=== PATIENT | female | born 1945 | race Caucasian/White ===

== ENCOUNTER 2019-02-01 07:50 | Day surgery (SDC) | payer OTHER ==
[2019-02-01] MEDS ORDERED: Ringers Lactate 1,000 ML IV ONE (08:09)
[2019-02-01] MEDS ORDERED: PROPOFOL 200 MG/20 ML VIAL IV ONE (08:38)
[2019-02-01] MEDS ORDERED: LIDOCAINE 1% MPF 5 ML VIAL ONE (08:38)
--- NOTE | 2019-02-01 08:56 | ENDO RPT ---
[address], [address] COLONOSCOPY PROCEDURE REPORT EXAM DATE: 02/01/2019 PATIENT NAME: Joanie Infante MR #: [id number] BIRTHDATE: 1945 ATTENDING: Buck Laws DR STATUS: outpatient ELECTROLYTIC DE SCALER: Chidi Whittaker and Sharona Rice RN INDICATIONS: The patient is a 73 yr old Female here for a colonoscopy due to colon cancer screening and S/P perforated diverticulitis with emergent colostomy PROCEDURE PERFORMED: Colonoscopy with biopsy - cold polypectomy MEDICATIONS: Per Anesthesia. ESTIMATED BLOOD LOSS: None CONSENT: The patient understands the risks and benefits of the procedure and understands that these risks include, but are not limited to: sedation, allergic reaction, infection, perforation and/or bleeding. Alternative means of evaluation and treatment include, among others: physical exam, x-rays, and/or surgical intervention. The patient elects to proceed with this endoscopic procedure. DESCRIPTION OF PROCEDURE: During intra-op preparation period all mechanical medical equipment was checked for proper function. Hand hygiene and appropriate measures for infection prevention was taken. Procedure, possible complications, alternatives including, but not limited to possibility of bleeding, perforation, tear, infection, sepsis, need for surgery, need for blood transfusion, were explained to the patient. After the risks, benefits and alternatives of the procedure were thoroughly explained, Informed consent was verified, confirmed and timeout was successfully executed by the treatment team. The patient was placed in the left lateral position. A digital rectal exam was performed and revealed no abnormalities of the rectum. After appropriate level of anesthesia, the scope was passed. The EC-[id number] ([id number]) endoscope was introduced through the anus and advanced to the ileum. The quality of the prep was fair. The instrument was then slowly withdrawn as the colon was fully examined. Scope withdrawal time was 10 minutes. COLON FINDINGS: Mild diverticulosis was noted in the sigmoid colon. No bleeding was noted from the diverticulosis. Three small smooth and polypoid shaped semi-pedunculated polyps with mucous caps were found in the rectum, sigmoid colon, and distal transverse colon. A polypectomy was performed with cold forceps. The resection was complete, the polyp tissue was completely retrieved and sent to histology. Retroflexed views revealed no abnormalities. The scope was then completely withdrawn from the patient and the procedure terminated. ADVERSE EVENTS: There were no complications. IMPRESSIONS: 1. Mild diverticulosis was noted in the sigmoid colon 2. Three small semi-pedunculated polyps were found in the rectum, sigmoid colon, and distal transverse colon; polypectomy was performed with cold forceps RECOMMENDATIONS: 1. avoid NSAIDS for 2 weeks 2. await biopsy results 3. fiber rich diet 4. follow-up: office 2 week(s) 5. Monitor for any evidence of rectal bleeding. 6. increase dietary water RECALL: Return in 2 year(s) for Colonoscopy, pending biopsy results. Pending Biopsy Buck Lwas DR eSigned: Buck Laws DR 02/01/2019 8:55 AM cc: CPT CODES: ICD9 CODES: PATIENT NAME: Joanie Infante MR#: [id number]
[2019-02-01 09:55] VITALS: BP 118/57; TEMP 97.6; O2SAT 96
== END 2019-02-01 09:50 | disposition home or self-care (01) ==
LOC: OR 07:50
PROVIDERS: ATTEND Surgery
PROC: 0DBL8ZX Excision of Transverse Colon, Via Natural or Artificial Opening Endoscopic, Diagnostic (ICD-10-PCS; 2019-02-01)
PROC: 0DBN8ZX Excision of Sigmoid Colon, Via Natural or Artificial Opening Endoscopic, Diagnostic (ICD-10-PCS; 2019-02-01)
PROC: 0DBP8ZX Excision of Rectum, Via Natural or Artificial Opening Endoscopic, Diagnostic (ICD-10-PCS; principal; 2019-02-01 09:30)
DX: Z12.11 Encounter for screening for malignant neoplasm of colon (principal); D12.3 Benign neoplasm of transverse colon; D12.5 Benign neoplasm of sigmoid colon; D12.8 Benign neoplasm of rectum; K57.30 Diverticulosis of large intestine without perforation or abscess without bleeding; Z98.0 Intestinal bypass and anastomosis status; I12.9 Hypertensive chronic kidney disease with stage 1 through stage 4 chronic kidney disease, or unspecified chronic kidney disease; N18.9 Chronic kidney disease, unspecified; E03.9 Hypothyroidism, unspecified; Z79.899 Other long term (current) drug therapy
CPT/HCPCS: 45380; 88305; J2704

== ENCOUNTER 2023-01-02 13:27 | Inpatient (IN) | payer OTHER ==
--- OUTSIDE RECORDS SUMMARY | 2023-01-02 13:31 | XMS REPORT | Continuity of Care Document ---
:1945 Author Organization [facility] t Address [address] [place] [address] [address] [place] [address] Care Team Providers Name Role Phone Lisa Eduardo Attending Clinician Unavailable Luciana Costa Attending Clinician Unavailable Juan Francisco James Attending Clinician Unavailable Jeanine Quintana Attending Clinician Unavailable Payers Payer Name Policy Type Policy Number Effective Date Expiration Date S ource Formerly [facility] C1 [id number] Common Sp raudel ing Medicare - [facility] Replace [facility] [employer] C1 [id number] Common Sp raudel ing Medicare - [facility] Replace [facility] [employer] C1 [id number] Common Sp raudel ing Medicare - [facility] Replace [facility] Problems Condition Condition Condition Status Onset Resolution Last Treating Co mments Source Name Details Category Date Date Treatment Clinician Date [id number] BMI Problem Common [facility] Essential Essential Problem Com mon hypertensi hypertensi Sp raudel on on [facility] Serum TSH Abnormal Problem Comm [facility] abnormal [facility] [id number] Abnormal Problem Comm on chest Spirit x-ray [facility] [id number] 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 - [facility] unspecifie Medica l d kyphosis Center type [id number] Environmen Problem Co mmon [place] [facility] allergies [facility] [id number] Hyperglyce Problem Com mon param [facility] [id number] 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, - [facility] unspecifie St d hearing [facility] loss type [facility] [id number] Acquired Problem Comm on hypothyroi Spirit dism [facility] [id number] [place] [id number] (BMI Spirit 30.0-34.9) [facility] 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 Spir it sterolemia [facility] Allergies, Adverse Reactions, Alerts Allergy Allergy Status Severity Reaction(s) Onset Inactive Treating Comm ents Source Name Type Date Date Clinician aspirin aspirin Active Unknown Common [facility] Benzodia Benzodia Active Unknown Commo n zepines zepines [facility] Social History Social Habit Start Date Stop Date Quantity Comments Source History of Tobacco Use Co mmon [facility] Sex Assigned At Com mon [facility] Smoking Status Start Date Stop Date Source Former Smoker 2022-09-16 00:00:00 2022-09-16 00:00:[facility] Medications Ordered Filled Start Stop Current Ordering Indication Dosage Frequency Signature Comments Components Source Medication Medication Date Date Medication? Clinician (SIG) Name Name Levothyroxi Levothyroxi No QD ne Sodium ne Sodium 8-02 50 MCG 50 MCG 00:00: 00 Levothyroxi Levothyroxi No QD Levothyrox ne Sodium ne Sodium 8-02 ine Sodium 50 MCG 50 MCG 00:00: 50 MCG 00 amLODIPine amLODIPine No 1{table amLODIPine Besylate Besylate 04-23 t} Besylate 2.5 MG 2.5 MG 00:00: 2.5 MG 00 amLODIPine amLODIPine No 1{table Besylate Besylate 04-23 t} 2.5 MG 2.5 MG 00:00: 00 Levothyroxi Levothyroxi No QD Levothyrox ne Sodium ne Sodium ine Sodium 25 MCG 25 MCG 25 MCG Lisinopril- Lisinopril- No 1{table QD Lisinopril hydroCHLORO hydroCHLORO t} -hydroCHLO thiazide thiazide ROthiazide 10-12.5 MG 10-12.5 MG 10-12.5 MG Levothyroxi Levothyroxi No QD Levothyrox ne Sodium ne Sodium ine Sodium 25 MCG 25 MCG 25 MCG amLODIPine amLODIPine No 1{table amLODIPine Besylate Besylate t} Besylate 2.5 MG 2.5 MG 2.5 MG Levothyroxi Levothyroxi No QD Levothyrox ne Sodium ne Sodium ine Sodium 25 MCG 25 MCG 25 MCG Calcium + D Calcium + D No 1{table QD Calcium + t} D Lisinopril- Lisinopril- No 1{table QD Lisinopril hydroCHLORO hydroCHLORO t} -hydroCHLO thiazide thiazide ROthiazide 10-12.5 MG 10-12.5 MG 10-12.5 MG Calcium + D Calcium + D No 1{table QD Calcium + t} D Levothyroxi Levothyroxi No QD Levothyrox ne Sodium ne Sodium ine Sodium 25 MCG 25 MCG 25 MCG amLODIPine amLODIPine No 1{table amLODIPine Besylate Besylate t} Besylate 2.5 MG 2.5 MG 2.5 MG Levothyroxi Levothyroxi No QD Levothyrox ne Sodium ne Sodium ine Sodium 25 MCG 25 MCG 25 MCG Lisinopril- Lisinopril- No 1{table QD Lisinopril hydroCHLORO hydroCHLORO t} -hydroCHLO thiazide thiazide ROthiazide 10-12.5 MG 10-12.5 MG 10-12.5 MG Levothyroxi Levothyroxi No Levothyrox ne Sodium ne Sodium ine Sodium 50 MCG 50 MCG 50 MCG Lisinopril- Lisinopril- No Lisinopril hydroCHLORO hydroCHLORO -hydroCHLO thiazide thiazide ROthiazide 10-12.5 MG 10-12.5 MG 10-12.5 MG amLODIPine amLODIPine No 1{table amLODIPine Besylate Besylate t} Besylate 2.5 MG 2.5 MG 2.5 MG Calcium + D Calcium + D No 1{table QD Calcium + t} D Levothyroxi Levothyroxi No QD Levothyrox ne Sodium ne Sodium ine Sodium 25 MCG 25 MCG 25 MCG Lisinopril- Lisinopril- No 1{table QD Lisinopril hydroCHLORO hydroCHLORO t} -hydroCHLO thiazide thiazide ROthiazide 10-12.5 MG 10-12.5 MG 10-12.5 MG Lisinopril- Lisinopril- No Lisinopril hydroCHLORO hydroCHLORO -hydroCHLO thiazide thiazide ROthiazide 10-12.5 MG 10-12.5 MG 10-12.5 MG Immune Immune No Immune Support - Support - Support - Levothyroxi Levothyroxi No Levothyrox ne Sodium ne Sodium ine Sodium 25 MCG 25 MCG 25 MCG Levothyroxi Levothyroxi No QD Levothyrox ne Sodium ne Sodium ine Sodium 25 MCG 25 MCG 25 MCG Claritin 10 Claritin 10 No 1{table QD Claritin MG MG t} 10 MG amLODIPine amLODIPine No 1{table amLODIPine Besylate Besylate t} Besylate 2.5 MG 2.5 MG 2.5 MG Calcium + D Calcium + D No 1{table QD Calcium + t} D Lisinopril- Lisinopril- No 1{table QD Lisinopril hydroCHLORO hydroCHLORO t} -hydroCHLO thiazide thiazide ROthiazide 10-12.5 MG 10-12.5 MG 10-12.5 MG Lisinopril- Lisinopril- No Lisinopril hydroCHLORO hydroCHLORO -hydroCHLO thiazide thiazide ROthiazide 10-12.5 MG 10-12.5 MG 10-12.5 MG Immune Immune No Immune Support - Support - Support - Levothyroxi Levothyroxi No Levothyrox ne Sodium ne Sodium ine Sodium 25 MCG 25 MCG 25 MCG Levothyroxi Levothyroxi No QD Levothyrox ne Sodium ne Sodium ine Sodium 25 MCG 25 MCG 25 MCG Claritin 10 Claritin 10 No 1{table QD Claritin MG MG t} 10 MG amLODIPine amLODIPine No 1{table amLODIPine Besylate Besylate t} Besylate 2.5 MG 2.5 MG 2.5 MG Calcium + D Calcium + D No 1{table QD Calcium + t} D Lisinopril- Lisinopril- No 1{table QD Lisinopril hydroCHLORO hydroCHLORO t} -hydroCHLO thiazide thiazide ROthiazide 10-12.5 MG 10-12.5 MG 10-12.5 MG Lisinopril- Lisinopril- No Lisinopril hydroCHLORO hydroCHLORO -hydroCHLO thiazide thiazide ROthiazide 10-12.5 MG 10-12.5 MG 10-12.5 MG Immune Immune No Immune Support - Support - Support - Levothyroxi Levothyroxi No Levothyrox ne Sodium ne Sodium ine Sodium 25 MCG 25 MCG 25 MCG Levothyroxi Levothyroxi No QD Levothyrox ne Sodium ne Sodium ine Sodium 25 MCG 25 MCG 25 MCG Claritin 10 Claritin 10 No 1{table QD Claritin MG MG t} 10 MG amLODIPine amLODIPine No 1{table amLODIPine Besylate Besylate t} Besylate 2.5 MG 2.5 MG 2.5 MG Calcium + D Calcium + D No 1{table QD Calcium + t} D Calcium + D Calcium + D No 1{table QD Calcium + t} D Lisinopril- Lisinopril- No Lisinopril hydroCHLORO hydroCHLORO -hydroCHLO thiazide thiazide ROthiazide 10-12.5 MG 10-12.5 MG 10-12.5 MG amLODIPine amLODIPine No 1{table amLODIPine Besylate Besylate t} Besylate 2.5 MG 2.5 MG 2.5 MG Levothyroxi Levothyroxi No Levothyrox ne Sodium ne Sodium ine Sodium 25 MCG 25 MCG 25 MCG Immune Immune No Immune Support - Support - Support - Claritin 10 Claritin 10 No 1{table QD Claritin MG MG t} 10 MG Lisinopril- Lisinopril- No 1{table QD Lisinopril hydroCHLORO hydroCHLORO t} -hydroCHLO thiazide thiazide ROthiazide 10-12.5 MG 10-12.5 MG 10-12.5 MG Calcium Calcium No Calcium tylenol tylenol No tylenol Calcium + D Calcium + D No 1{table QD Calcium + t} D Levothyroxi Levothyroxi No QD Levothyrox ne Sodium ne Sodium ine Sodium 75 MCG 75 MCG 75 MCG Flonase 50 Flonase 50 No QD Flonase 50 MCG/ACT MCG/ACT MCG/ACT Calcium + D Calcium + D No 1{table QD t} Calcium Calcium No Flonase 50 Flonase 50 No QD MCG/ACT MCG/ACT Lisinopril- Lisinopril- No 1{table QD hydroCHLORO hydroCHLORO t} thiazide thiazide 10-12.5 MG 10-12.5 MG tylenol tylenol No Levothyroxi Levothyroxi No QD Levothyrox ne Sodium ne Sodium ine Sodium 75 MCG 75 MCG 75 MCG Lisinopril- Lisinopril- No 1{table QD Lisinopril hydroCHLORO hydroCHLORO t} -hydroCHLO thiazide thiazide ROthiazide 10-12.5 MG 10-12.5 MG 10-12.5 MG amLODIPine amLODIPine No 1{table amLODIPine Besylate Besylate t} Besylate 2.5 MG 2.5 MG 2.5 MG Calcium + D Calcium + D No 1{table QD Calcium + t} D Calcium + D Calcium + D No 1{table QD Calcium + t} D Lisinopril- Lisinopril- Yes Jeanine 1 tablet Common Hydrochloro Hydrochloro [facility] thiazide thiazide - [facility] Levothyroxi Levothyroxi Yes Jeanine 1 tablet Common ne Sodium ne Sodium [facility] in the Spirit morning on - [facility] empty [facility] amLODIPine amLODIPine No 1{table amLODIPine Besylate Besylate t} Besylate 2.5 MG 2.5 MG 2.5 MG Immunizations Ordered Immunization Filled Immunization Date Status Commen ts Source Name Name FLUZONE HIGH DOSE FLUZONE HIGH DOSE 2022-08-11 Completed [facility] OVER 65 OVER 65 14:58:00 - [facility] FLUZONE HIGH DOSE FLUZONE HIGH DOSE 2022-08-11 Completed [facility] OVER 65 OVER 65 14:58:00 - [facility] FLUZONE HIGH DOSE FLUZONE HIGH DOSE 2022-08-11 Completed [facility] OVER 65 OVER 65 14:58:00 - [facility] FLUZONE HIGH DOSE FLUZONE HIGH DOSE 2022-08-11 Completed [facility] OVER 65 OVER 65 14:58:00 - [facility] FluAD FluAD 2021-08-23 Completed [facility] 09:07:00 [facility] FluAD FluAD 2021-08-23 Completed [facility] 09:07:00 - [facility] FluAD FluAD 2021-08-23 Completed [facility] 09:07:00 - [facility] FluAD FluAD 2021-08-23 Completed [facility] 09:07:00 - [facility] FluAD FluAD 2021-08-23 Completed [facility] 09:07:00 - [facility] FluAD FluAD 2021-08-23 Completed [facility] 09:07:00 [facility] FluAD FluAD 2021-08-23 Completed [facility] 09:07:00 - [facility] FluAD FluAD 2021-08-23 Completed [facility] 09:07:00 - [facility] FLUZONE HIGH DOSE FLUZONE HIGH DOSE 2020-07-09 Completed [facility] OVER 65 OVER 65 15:44:00 - [facility] FLUZONE HIGH DOSE FLUZONE HIGH DOSE 2020-07-09 Completed [facility] OVER 65 OVER 65 15:44:00 - [facility] FLUZONE HIGH DOSE FLUZONE HIGH DOSE 2020-07-09 Completed [facility] OVER 65 OVER 65 15:44:00 - [facility] FLUZONE HIGH DOSE FLUZONE HIGH DOSE 2020-07-09 Completed [facility] OVER 65 OVER 65 15:44:00 - [facility] FLUZONE HIGH DOSE FLUZONE HIGH DOSE 2020-07-09 Completed [facility] OVER 65 OVER 65 15:44:00 - [facility] FLUZONE HIGH DOSE FLUZONE HIGH DOSE 2020-07-09 Completed [facility] OVER 65 OVER 65 15:44:00 - [facility] FLUZONE HIGH DOSE FLUZONE HIGH DOSE 2020-07-09 Completed [facility] OVER 65 OVER 65 15:44:00 - [facility] FLUZONE HIGH DOSE FLUZONE HIGH DOSE 2020-07-09 Completed [facility] OVER 65 OVER 65 15:44:00 - [facility] FLUZONE HIGH DOSE FLUZONE HIGH DOSE 2020-07-09 Completed [facility] OVER 65 OVER 65 15:44:00 - [facility] FLUZONE HIGH DOSE FLUZONE HIGH DOSE 2020-07-09 Completed [facility] OVER 65 OVER 65 15:44:00 - [facility] FLUZONE HIGH DOSE FLUZONE HIGH DOSE 2020-07-09 Completed [facility] OVER 65 OVER 65 15:44:00 - [facility] Fluzone Fluzone 2018-07-25 Completed [facility] 10:29:00 - [facility] Fluzone Fluzone 2018-07-25 Completed [facility] 10:29:00 - [facility] Fluzone Fluzone 2018-07-25 Completed [facility] 10:29:00 - [facility] Fluzone Fluzone 2018-07-25 Completed [facility] 10:29:00 - [facility] Fluzone Fluzone 2018-07-25 Completed [facility] 10:29:00 - [facility] Fluzone Fluzone 2018-07-25 Completed [facility] 10:29:00 - [facility] Fluzone Fluzone 2018-07-25 Completed [facility] 10:29:00 - [facility] Fluzone Fluzone 2018-07-25 Completed [facility] 10:29:00 - [facility] Fluzone Fluzone 2018-07-25 Completed [facility] 10:29:00 - [facility] Fluzone Fluzone 2018-07-25 Completed [facility] 10:29:00 - [facility] Fluzone Fluzone 2018-07-25 Completed [facility] 10::00 - [facility] Vital Signs Vital Name Observation Time Observation Value Comments Source height 2022-09-16 09:00:00 60.50 [in_i] [facility] weight 2022-09-16 09:00:00 163.8 [lb_av] [facility] temperature 2022-09-16 09:00:00 97.6 [degF] [facility] bmi 2022-09-16 09:00:00 31.46 kg/m2 [facility] oximetry 2022-09-16 09:00:00 96 % [facility] respiratory rate 2022-09-16 09:00:00 18 /min Comm on [facility] blood pressure 2022-09-16 09:00:00 136 mm[Hg] Common [facility] systolic [facility] blood pressure 2022-09-16 09:00:00 72 mm[Hg] [facility] diastolic [facility] height 2022-08-11 13:40:00 60.50 [in_i] [facility] weight 2022-08-11 13:40:00 165 [lb_av] [facility] temperature 2022-08-11 13:40:00 97.2 [degF] Common S pirit [facility] bmi 2022-08-11 13:40:00 31.69 kg/m2 [facility] oximetry 2022-08-11 13:40:00 93 % Common [facility] respiratory rate 2022-08-11 13:40:00 20 /min Comm on [facility] blood pressure 2022-08-11 13:40:00 142 mm[Hg] [facility] systolic [facility] blood pressure 2022-08-11 13:40:00 96 mm[Hg] [facility] - diastolic [facility] height 2022-08-11 13:00:00 60.50 [in_i] Common [facility] weight 2022-08-11 13:00:00 165 [lb_av] Common [facility] temperature 2022-08-11 13:00:00 97.2 [degF] Common S [facility] bmi 2022-08-11 13:00:00 31.69 kg/m2 [facility] oximetry 2022-08-11 13:00:00 93 % [facility] respiratory rate 2022-08-11 13:00:00 20 /min Comm on [facility] blood pressure 2022-08-11 13:00:00 176 mm[Hg] [facility] - systolic [facility] blood pressure 2022-08-11 13:00:00 94 mm[Hg] [facility] - diastolic [facility] height 2022-02-07 11:00:00 60.50 [in_i] Common S [facility] weight 2022-02-07 11:00:00 164.2 [lb_av] Common [facility] temperature 2022-02-07 11:00:00 98.0 [degF] [facility] bmi 2022-02-07 11:00:00 31.54 kg/m2 [facility] oximetry 2022-02-07 11:00:00 95 % [facility] respiratory rate 2022-02-07 11:00:00 16 /min Comm on [facility] blood pressure 2022-02-07 11:00:00 135 mm[Hg] [facility] - systolic [facility] blood pressure 2022-02-07 11:00:00 77 mm[Hg] [facility] - diastolic [facility] height 2021-10-26 11:20:00 60.50 [in_i] Common [facility] weight 2021-10-26 11:20:00 161 [lb_av] [facility] bmi 2021-10-26 11:20:00 30.92 kg/m2 [facility] height 2021-07-23 11:40:00 60.50 [in_i] [facility] weight 2021-07-23 11:40:00 161 [lb_av] [facility] temperature 2021-07-23 11:40:00 97.8 [degF] [facility] bmi 2021-07-23 11:40:00 30.92 kg/m2 [facility] oximetry 2021-07-23 11:40:00 95 % [facility] respiratory rate 2021-07-23 11:40:00 20 /min Comm on [facility] blood pressure 2021-07-23 11:40:00 128 mm[Hg] [facility] systolic [facility] blood pressure 2021-07-23 11:40:00 70 mm[Hg] [facility] diastolic [facility] height 2021-04-23 11:40:00 60.50 [in_i] Common [facility] weight 2021-04-23 11:40:00 154.8 [lb_av] [facility] temperature 2021-04-23 11:40:00 97.4 [degF] Common [facility] bmi 2021-04-23 11:40:00 29.73 kg/m2 [facility] oximetry 2021-04-23 11:40:00 96 % Common [facility] respiratory rate 2021-04-23 11:40:00 18 /min Comm on [facility] blood pressure 2021-04-23 11:40:00 148 mm[Hg] Common [facility] systolic [facility] blood pressure 2021-04-23 11:40:00 92 mm[Hg] Common [facility] diastolic [facility] Procedures This patient has no known procedures. Encounters Start End Encounter Admission Attending Care Care Encounter Source Date/Time Date/Time Type Type Clinicians Facility Department ID 2022-12-19 Outpatient Alesha, STLMLC STLMLC [id number] Common 16:38:00 Lisa 19876 [facility] 2022-09-01 Outpatient Costa, Na STLMLC STLMLC [id number] Common 16:11:01 [facility] 2022-08-09 Outpatient Costa, Na STLMLC STLMLC [id number] Common 15:10:01 [facility] 2022-02-07 Outpatient Costa, Na STLMLC STLMLC [id number] Common 10:55:01 [facility] 2021-11-10 Outpatient Costa, Na STLMLC STLMLC [id number] Common 14:39:13 [facility] 2021-11-10 Outpatient Costa, Na STLMLC STLMLC [id number] Common 14:32:18 [facility] 2021-11-10 Outpatient Costa, Na STLMLC STLMLC [id number] Common 13:57:22 [id number] [facility] 2021-11-10 Outpatient Costa, Na STLMLC STLMLC [id number] Common 13:22:51 [id number] [facility] 2021-11-10 Outpatient Luciana Costa STLMLC STLMLC [id number] Common 12:44:11 71525 [facility] 2021-11-10 Outpatient STLMLC STLMLC [id number] Common 12:23:12 [id number] [facility] 2021-11-10 Outpatient Juan Francisco James STLMLC STLMLC [id number] Common 12:08:17 [id number] [facility] 2021-11-10 Outpatient Millender, STLMLC STLMLC [id number] Common 11:48:28 Jeanine 23767 [facility] 2021-11-10 Outpatient Millender, STLMLC STLMLC [id number] Common 11:13:29 Jeanine 12607 [facility] 2021-11-10 Outpatient Millender, STLMLC STLMLC [id number] Common 11:07:08 Jeanine [id number] [facility] 2021-11-10 Outpatient Millender, STLMLC STLMLC [id number] Common 11:01:34 Jeanine 24732 [facility] 2022-09-16 2022-09-16 OFFICE STLMLC STLMLC [id number] Co mmon 00:00:00 00:00:00 VISIT EST Spir it PT LEVEL 3 - [facility] 2022-08-24 2022-08-24 (TEL) STLMLC STLMLC [id number] Co mmon 00:00:00 00:00:00 [facility] 2022-08-11 2022-08-11 SUB ANNUAL STLMLC STLMLC [id number] Common 00:00:00 00:00:00 MCR [facility] VISIT [facility] 2022-08-11 2022-08-11 OFFICE STLMLC STLMLC [id number] Co mmon 00:00:00 00:00:00 VISIT EST Spir it PT LEVEL 3 [facility] 2022-04-07 2022-04-07 (TEL) STLMLC STLMLC [id number] Co mmon 00:00:00 00:00:00 [facility] 2022-02-07 2022-02-07 OFFICE STLMLC STLMLC [id number] Co mmon 00:00:00 00:00:00 VISIT [facility] PT - [facility] LEVEL 4 [facility] 2021-10-26 2021-10-26 OL DIG E/M STLMLC STLMLC [id number] Common 00:00:00 00:00:00 C 20 Spir it MIN - [facility] 2021-10-06 2021-10-06 (TEL) STLMLC STLMLC [id number] Co mmon 00:00:00 00:00:00 [facility] 2021-07-23 2021-07-23 OFFICE STLMLC STLMLC [id number] Co mmon 00:00:00 00:00:00 VISIT EST Spir it PT LEVEL 3 - [facility] 2021-05-06 2021-05-06 (TEL) STLMLC STLMLC [id number] Co mmon 00:00:00 00:00:00 [facility] 2021-04-23 2021-04-23 OFFICE STLMLC STLMLC [id number] Co mmon 00:00:00 00:00:00 VISIT [facility] PT [facility] LEVEL 4 [facility] 2021-01-20 2021-01-20 Outpatient STLMLC STLMLC [id number] Common 00:00:00 00:00:00 [facility] 2021-01-07 2021-01-07 Outpatient STLMLC STLMLC [id number] Common 00:00:00 00:00:00 [facility] 2021-01-07 2021-01-07 Outpatient STLMLC STLMLC [id number] Common 00:00:00 00:00:00 [facility] 2020-11-04 2020-11-04 Outpatient STLMLC STLMLC [id number] Common 00:00:00 00:00:00 [facility] 2020-07-09 2020-07-09 Outpatient STLMLC STLMLC [id number] Common 00:00:00 00:00:00 [facility] 2020-01-01 2020-01-01 [facility] [id number] Common 14:36:00 14:36:00 t [facility] [address] [facility] 2019-12-30 2019-12-30 [facility] [id number] Common 09:30:00 09:30:00 t [facility] [address] [facility] 2019-11-27 2019-11-27 [facility] [id number] Common 11:15:00 11:15:00 t [facility] [address] [facility] 2019-11-11 2019-11-11 [facility] [id number] Common 20:20:00 20:20:00 t [facility] [address] [facility] 2019-11-03 2019-11-03 [facility] [id number] Common 17:42:00 17:42:[address] [facility] 2019-11-01 2019-11-01 [facility] [id number] Common 15:45:00 15:45:00 t [facility] [address] [facility] Results This patient has no known results.
[2023-01-02] MEDS ORDERED: Ringers Lactate 1,000 ML IV ONE (14:34)
[2023-01-02] MEDS ORDERED: ONDANSETRON 4 MG/2 ML VIAL ONE (14:34)
[2023-01-02 14:38] LABS: Absolute Lymphocytes (CBC) 0.7 K/uL (0.7-4.9); Hematocrit 40.2 % (36.0-45.0); Lymphocytes % 23.7 % (15.3-44.8); MCV 92.1 fL (80-100); MPV 8.7 fL (7.6-11.3); RBC Red Blood Cell Count 4.37 M/uL (3.86-4.86)
[2023-01-02 15:04] LABS: Albumin 3.5 g/dL (3.4-5.0); Bilirubin Total 0.7 mg/dL (0.2-1.0); Potassium 2.9 mEq/L (3.5-5.1); Protein, Total 7.7 g/dL (6.4-8.2)
[2023-01-02 15:25] LABS: SARS-COV-2 RT PCR POSITIVE (NEGATIVE)
[2023-01-02] MEDS ORDERED: POTASSIUM CL SA 10 MEQ TAB PO ONE ×2 (15:40→20:03)
--- NOTE | 2023-01-02 16:33 | EDPHYS ---
Physician Documentation [facility] Name: Joanie Infante Age: 77 yrs Sex: Female : 1945 Arrival Date: 01/02/2023 Time: 13:33 Bed 4 Private MD: ED Physician Flynn Sanchez HPI: 01/02 19:11 The patient presents to the emergency department with nausea, vomiting, diarrhea, jmm abdominal pain. Onset: The symptoms/episode began/occurred gradually, 1 week(s) ago. Possible causes: unknown. The symptoms are aggravated by nothing. The symptoms are alleviated by nothing. Associated signs and symptoms: Pertinent positives: cough, sore throat. The patient has not experienced similar symptoms in the past. This is a 77 year old female with a history of htn that presents to the ED with complaints of diarrhea, vomiting, abdominal pain beginning approx 1 week ago. Daughter has similar symptoms. . Historical: - Allergies: 14:00 Aspirin; aa5 - PMHx: 14:00 thyroid problem; Hypertensive disorder; aa5 - Immunization history:: Adult Immunizations unknown. - Social history:: Smoking status: Patient denies any tobacco usage or history of. ROS: 19:11 Constitutional: Positive for body aches, chills. jmm 19:11 Respiratory: Positive for cough. 19:11 Abdomen/GI: Positive for abdominal pain, nausea and vomiting, diarrhea. 19:11 All other systems are negative. Exam: 19:11 Constitutional: This is a well developed, well nourished patient who is awake, alert, jmm and in no acute distress. Head/Face: atraumatic. Eyes: EOMI, no conjunctival erythema appreciated ENT: Moist Mucus Membranes Neck: Trachea midline, Supple Chest/axilla: Normal chest wall appearance and motion. Cardiovascular: Regular rate and rhythm. No edema appreciated Respiratory: Normal respirations, no respiratory distress appreciated Abdomen/GI: Non distended Back: Normal ROM Skin: General appearance color normal 19:11 Musculoskeletal/extremity: ROM: intact in all extremities. 19:11 Skin: Appearance: Color: normal in color. 19:11 Neuro: Orientation: is normal, Mentation: is normal, Memory: is normal. 19:11 Psych: Behavior/mood is pleasant, cooperative. Vital Signs: 14:00 BP 152 / 87; Pulse 101; Resp 20 S; Temp 97.5(O); Pulse Ox 97% on R/A; Weight 70.31 kg aa5 (R); Height 5 ft. 3 in. (R); 14:35 BP 151 / 78; Pulse 95; Resp 16; Temp 98.7(O); Pulse Ox 97% on R/A; vg1 15:30 BP 146 / 98; Pulse 94; Resp 16; Pulse Ox 95% on R/A; vg1 16:30 BP 159 / 86; Pulse 98; Resp 20; Pulse Ox 93% on R/A; vg1 17:30 BP 129 / 76; Pulse 92; Resp 20; Pulse Ox 93% on R/A; vg1 14:00 Body Mass Index 27.46 (70.31 kg, 160.02 cm) aa5 MDM: 13:36 Patient medically screened. bs3 19:21 Differential diagnosis: Nonspecific abd pain, gastritis. Data reviewed: vital signs, [facility] nurses notes, lab test result(s). Consideration of Admission/Observation Patient was admitted/placed on observation. Management of patient was discussed with the following: Hospitalist: KWAKU Dueñas. I considered the following discharge prescriptions or medication management in the emergency department Medications were administered in the Emergency Department. See MAR. Counseling: I had a detailed discussion with the patient and/or guardian regarding: the historical points, exam findings, and any diagnostic results supporting the discharge/admit diagnosis, lab results, the need for further work-up and treatment in the hospital. 01/02 13:58 Order name: CBC with Diff; Complete Time: 14:57 [facility] 01/02 13:58 Order name: CMP; Complete Time: 15:08 [facility] 01/02 13:58 Order name: Lipase; Complete Time: 15:08 [facility] 01/02 13:58 Order name: COVID-19/FLU A+B; Complete Time: 15:25 [facility] 01/02 17:57 Order name: Fecal Leukocyte Stain [facility] 01/02 17:57 Order name: Ova and Parasites [facility] 01/02 17:57 Order name: Stool Culture [facility] 01/02 17:59 Order name: Comprehensive Metabolic Panel [facility] 01/02 17:59 Order name: Phosphorus [facility] 01/02 17:59 Order name: Magnesium; Complete Time: 19:11 [facility] 01/02 17:59 Order name: Urinalysis [facility] 01/02 17:59 Order name: Basic Metabolic Panel [facility] 01/02 17:59 Order name: Basic Metabolic Panel [facility] 01/02 17:59 Order name: Comprehensive Metabolic Panel [facility] 01/02 17:59 Order name: Comprehensive Metabolic Panel [facility] 01/02 17:24 Order name: Abdomen Wo Contrast [facility] 01/02 17:37 Order name: Chest Pa And Lat (2 Views) [facility] 01/02 17:55 Order name: NPO [facility] 01/02 13:58 Order name: IV Saline Lock; Complete Time: 14:25 [facility] 01/02 13:58 Order name: Labs collected and sent; Complete Time: 14:25 [facility] Administered Medications: 14:36 Drug: Lactated Ringers Solution IV 1000 ml Route: IV; Rate: 1000 bolus; Site: right vg1 antecubital; 15:55 Follow up: IV Status: Completed infusion; IV Intake: 1000ml vg1 14:37 Drug: Ondansetron IVP 4 mg Route: IVP; Site: right antecubital; vg1 15:55 Follow up: Response: No adverse reaction; Marked relief of symptoms vg1 15:41 Drug: Potassium Chloride PO 40 mEq Route: PO; vg1 17:00 Follow up: Response: No adverse reaction vg1 Disposition Summary: 01/02/23 16:32 Hospitalization Ordered Hospitalization Status: Inpatient Admission [facility] Provider: Armand Greene Location: Telemetry/MedSurg (Inpatient) jmm Condition: Stable jmm Problem: new jmm Symptoms: are unchanged jm Bed/Room Type: Standard [facility] Room Assignment: 418(01/02/23 18:31) eb Diagnosis - Dehydration jmm - Coronavirus infection, unspecified jmm - Hypo-osmolality and hyponatremia jmm - Hypokalemia jmm Forms: - Medication Reconciliation Form jmm - SBAR form jmm Signatures: Dispatcher [employer] [facility] Chet العراقي PA PA jmm Calderon, Audri RN RN aa5 Mar Carter Victoria RN RN vg1 Flynn Sanchez MD MD bs3 Corrections: (The following items were deleted from the chart) 18:31 16:32 jmm eb
--- NOTE | 2023-01-02 16:33 | ER ---
Nurse's Notes [facility] Name: Joanie Infante Age: 77 yrs Sex: Female : 1945 Arrival Date: 01/02/2023 Time: 13:33 Bed 4 Private MD: Diagnosis: Dehydration;Coronavirus infection, unspecified;Hypo-osmolality and hyponatremia;Hypokalemia Presentation: 01/02 14:00 Chief complaint: Patient states: "me and my daughter have been having diarrhea for a aa5 week and not feeling well". Coronavirus screen: diarrhea. Ebola Screen: Patient denies travel to an Ebola-affected area in the 21 days before illness onset. Initial Sepsis Screen: Does the patient meet any 2 criteria? HR > 90 bpm. Does the patient have a suspected source of infection? No. Patient's initial sepsis screen is negative. Risk Assessment: Do you want to hurt yourself or someone else? Patient reports no desire to harm self or others. Onset of symptoms was December 2022. 14:00 Method Of Arrival: Ambulatory aa5 14:00 Acuity: BOLA 3 aa5 Historical: - Allergies: 14:00 Aspirin; aa5 - PMHx: 14:00 thyroid problem; Hypertensive disorder; aa5 - Immunization history:: Adult Immunizations unknown. - Social history:: Smoking status: Patient denies any tobacco usage or history of. Screenin:35 [facility] ED Fall Risk Assessment (Adult) History of falling in the last 3 months, vg1 including since admission No falls in past 3 months (0 pts) Confusion or Disorientation No (0 pts) Intoxicated or Sedated No (0 pts) Impaired Gait No (0 pts) Mobility Assist Device Used No (0 pt) Altered Elimination No (0 pt) Score/Fall Risk Level 0 - 2 = Low Risk Oriented to surroundings, Maintained a safe environment, Educated pt \\T\\ family on fall prevention, incl call for assistance when getting out of bed, Assessed \\T\\ reinforced patient's understanding of fall precautions. Abuse screen: Denies threats or abuse. Denies injuries from another. Nutritional screening: No deficits noted. Tuberculosis screening: No symptoms or risk factors identified. Assessment: 14:30 General: Appears in no apparent distress. uncomfortable, Behavior is calm, cooperative. vg1 Pain: Complains of pain in epigastric area Pain currently is 2 out of 10 on a pain scale. Pain began X 1 WEEK. Neuro: Level of Consciousness is awake, alert, obeys commands, Oriented to person, place, time, situation. Cardiovascular: Patient's skin is warm and dry. Respiratory: Airway is patent Respiratory effort is even, unlabored. GI: Abdomen is flat, Reports diarrhea, nausea, since x 1 week. : No signs and/or symptoms were reported regarding the genitourinary system. EENT: No signs and/or symptoms were reported regarding the EENT system. Derm: Skin is pink, warm \\T\\ dry. Musculoskeletal: Circulation, motion, and sensation intact. 15:55 Reassessment: Patient appears in no apparent distress at this time. Patient and/or vg1 family updated on plan of care and expected duration. Pain level reassessed. Patient is alert, oriented x 3, equal unlabored respirations, skin warm/dry/pink. 16:55 Reassessment: Patient appears in no apparent distress at this time. Patient and/or vg1 family updated on plan of care and expected duration. Pain level reassessed. Patient is alert, oriented x 3, equal unlabored respirations, skin warm/dry/pink. Pt stated "im just not feeling well". 17:51 Reassessment: Patient appears in no apparent distress at this time. No changes from [facility] previously documented assessment. Patient and/or family updated on plan of care and expected duration. Pain level reassessed. Patient is alert, oriented x 3, equal unlabored respirations, skin warm/dry/pink. Pt transported to [facility]. Vital Signs: 14:00 BP 152 / 87; Pulse 101; Resp 20 S; Temp 97.5(O); Pulse Ox 97% on R/A; Weight 70.31 kg aa5 (R); Height 5 ft. 3 in. (R); 14:35 BP 151 / 78; Pulse 95; Resp 16; Temp 98.7(O); Pulse Ox 97% on R/A; vg1 15:30 BP 146 / 98; Pulse 94; Resp 16; Pulse Ox 95% on R/A; vg1 16:30 BP 159 / 86; Pulse 98; Resp 20; Pulse Ox 93% on R/A; vg1 17:30 BP 129 / 76; Pulse 92; Resp 20; Pulse Ox 93% on R/A; vg1 14:00 Body Mass Index 27.46 (70.31 kg, 160.02 cm) aa5 ED Course: 13:33 Patient arrived in ED. rg4 13:37 Flynn Sanchez MD is Attending Physician. bs3 13:58 Chet العراقي PA is PHCP. jmm 13:59 Arm band placed on. aa5 14:01 Triage completed. aa5 14:22 Jade Gonsalez, RN is Primary Nurse. vg1 14:24 Inserted saline lock: 20 gauge in right antecubital area, using aseptic technique. zm Blood collected. 14:24 COVID-19/FLU A+B Sent. zm 14:25 CBC with Diff Sent. zm 14:25 CMP Sent. zm 14:25 Lipase Sent. zm 14:35 Patient has correct armband on for positive identification. Bed in low position. Call vg1 light in reach. Side rails up X 1. Adult w/ patient. 14:35 No provider procedures requiring assistance completed. vg1 16:31 Armand Greene MD is Hospitalizing Provider. m 17:59 Chest Pa And Lat (2 Views) In Process Unspecified. EDMS 19:17 Patient admitted, IV remains in place. vg1 Administered Medications: 14:36 Drug: Lactated Ringers Solution IV 1000 ml Route: IV; Rate: 1000 bolus; Site: right vg1 antecubital; 15:55 Follow up: IV Status: Completed infusion; IV Intake: 1000ml vg1 14:37 Drug: Ondansetron IVP 4 mg Route: IVP; Site: right antecubital; vg1 15:55 Follow up: Response: No adverse reaction; Marked relief of symptoms vg1 15:41 Drug: Potassium Chloride PO 40 mEq Route: PO; vg1 17:00 Follow up: Response: No adverse reaction vg1 Medication: 14:35 VIS not applicable for this client. vg1 Intake: 15:55 IV: 1000ml; Total: 1000ml. vg1 Outcome: 16:32 Decision to Hospitalize by Provider. jmm 19:17 Admitted to Tele accompanied by tech, via wheelchair, room 418, with chart, Report vg1 called to Giuliana CAMPOS 19:17 Condition: good 19:17 Instructed on the need for admit. 19:17 Patient left the ED. vg1 Signatures: Dispatcher [employer] EDMS Dulce Maria Chet, PA PA jmm Zee, Erma, RN RN aa5 Dilma Gonsalez4 Jade Gonsalez RN RN vg1 Lynda Bunch Brandon, MD MD bs3
[2023-01-02] MEDS ORDERED: ACETAMINOPHEN 325 MG TABLET PO PRN (17:52)
[2023-01-02] MEDS ORDERED: HYDROCODONE/APAP 5/325 MG TAB PO PRN (17:52)
--- NOTE | 2023-01-02 17:56 | P.HP ---
Certification for Inpatient Patient admitted to: Inpatient With expected LOS: >2 Midnights Patient will require the following post-hospital care: None Practitioner: I am a practitioner with admitting privileges, knowledge of patient current condition, hospital course, and medical plan of care. Services: Services provided to patient in accordance with Admission requirements found in Title 42 Section 412.3 of the Code of Federal Regulations Patient History Date of Service: 01/02/23 Reason for admission: N\V\D, Adominal pain History of Present Illness: Patient is a 77-year-old female with a past medical history significant for hypothyroidism, hypertension, hemorrhoids, hemicolectomy who presents with complaint of diarrhea that has been ongoing for the past 1 and half weeks. Patient also reports upper quadrant abdominal pain ongoing intermittently for same period of time. Patient reported pain before coming to the ER as 4/10 in severity and described pain as aching in quality. Patient reported associated signs and symptoms of nausea, vomiting, poor appetite and shortness of breath. Patient denies any known exposure to COVID infected contact. Patient denies any other signs or symptoms. Symptoms are aggravated or relieved by nothing. Patient decided to present to the hospital due to worsening symptoms. Allergies aspirin Allergy (Verified 05/17/17 13:23) Unknown diazepam [From Valium] Adverse Reaction (Verified 05/17/17 13:23) [facility] Medications: Albuterol Sulfate [Proair Hfa] 8.5 gm IH TID PRN #1 hfa.[email or web address] 04/13/16 Lisinopril/Hydrochlorothiazide [Zestoretic 10-12.5 mg Tablet] 1 each PO DAILY WITH BREAKFAST #30 tablet 04/13/16 Calcium Carbonate/Vitamin D3 [Calcium 500 mg-Vit D3 600 Unit] 1 each PO DAILY 02/01/19 Levothyroxine Sodium [Synthroid] 50 mcg PO DAILY 01/02/23 - Past Medical/Surgical History Diabetic: No -: HTN -: Colon polyps -: exploratory lap 30yrs ago -: hysterectomy 28 yrs ago -: left elbow more than 50 yrs ago Psychosocial/ Personal History: She is a , has 3 children. She lives with a special needs daughter. She takes care of her. - Family History Mother -: Hypertension Notes: mother had adult onset leukemia, copd - Social History Smoking Status: Never smoker Alcohol use: No CD- Drugs: No Caffeine use: No Place of Residence: Home Review of Systems 10-point ROS is otherwise unremarkable General: Other (Poor appetite ) Eyes: Unremarkable ENT: Unremarkable Respiratory: Shortness of Breath Cardiovascular: Unremarkable Gastrointestinal: Nausea, Vomiting, Abdominal Pain, Diarrhea Musculoskeletal: Unremarkable Integumentary: Unremarkable Neurological: Unremarkable Lymphatics: Unremarkable Physical Examination - Physical Exam General: Alert, In no apparent distress, Oriented x3, Cooperative HEENT: Atraumatic, PERRLA, Mucous membr. moist/pink, EOMI, Sclerae nonicteric Neck: Supple, 2+ carotid pulse no bruit, No LAD, Without JVD or thyroid abnormality Respiratory: Clear to auscultation bilaterally, Normal air movement Cardiovascular: No edema, Regular rate/rhythm, Normal S1 S2 Capillary refill: <2 Seconds Gastrointestinal: Normal bowel sounds, Soft and benign, Tenderness Musculoskeletal: No clubbing, No swelling, No contractures, No tenderness Integumentary: No rashes, No breakdown, No significant lesion Neurological: Normal speech, Normal tone, Normal affect Lymphatics: No axilla or inguinal lymphadenopathy - Studies Laboratory Data (last 24 hrs) 01/02/23 14:17: Sodium 123 L, Potassium 2.9 L, BUN 12, Creatinine 1.06 H, Glucose 147 H, Total Bilirubin 0.7, AST 68 H, ALT 60 H, Alkaline Phosphatase 111, Lipase 50 01/02/23 14:17: WBC 3.00 L, Hgb 14.0, Hct 40.2, Plt Count 157 Assessment and Plan - Plan --COVID-19 infection. Patient denies any known COVID exposure. Chest x-ray indicates mildly enlarged heart and lungs which appeared clear of acute infiltrate. O2 sat WNL on RA. Continue airborne and contact precautions. --Hyponatremia.. Serum\urine osmolality, urine sodium pending for further evaluation. Sodium on presentation to the ER was 123. Nephrology consulted. Repeat level indicates improvement in sodium levels to 127. We will await further recommendation from administrator of home health. --Hypophosphatemia. Replete as needed. Continue supportive care. --LEATHA. Likely prerenal. Secondary to fluid losses. Patient given IV hydration in the ER. Repeat levels indicates improving levels of renal function.We will continue to monitor renal functions. Avoid nephrotoxins. --Hypertension. Poorly controlled. We will manage BP with labetalol as needed. --Hypokalemia\Hypophosphatemia. Replete as needed. --Abdominal pain. CT abdomen indicates moderate supraumbilical hernia containing fat, cholelithiasis without evidence of cholecystitis and suspected left renal cyst. Patient has a history of right hemicolectomy. Will manage pain with current pain medication regimen. --Anemia of chronic disease. H&H stable. We will continue to monitor hemoglobin and transfuse if less than 7.0. --Diarrhea. We will get stool studies to rule out infectious process. Continue IV hydration. --Nausea and vomiting. Antiemetics on board. Continue IV hydration. --DVT prophylaxis with Lovenox subQ. Discharge Plan: Home Plan to discharge in: Greater than 2 days - Advance Directives Does patient have a Living Will: Yes Does patient have a Durable POA for Healthcare: Yes - Code Status/Comfort Care Code Status Assessed: Yes Physician Review: Patient Assessed, Agree with Above Assessment and Plan Critical Care: No
[2023-01-02] MEDS: NA CHLORIDE 0.9% 1,000 ML IV SCH ×2 (18:00→20:42)
[2023-01-02] MEDS ORDERED: NA CHLORIDE 0.9% 1,000 ML ONE (18:23)
[2023-01-02 19:16] LABS: Albumin 3.1 g/dL (3.4-5.0); Bilirubin Total 0.6 mg/dL (0.2-1.0); Potassium 3.2 mEq/L (3.5-5.1); Protein, Total 6.8 g/dL (6.4-8.2)
[2023-01-02 19:18] LABS: Phosphorus 1.5 mg/dL (2.5-4.9)
--- NOTE | 2023-01-02 19:35 | RAD REPORT ---
EXAM DESCRIPTION: Wilmer Macias (2 Views)01/02/2023 5:57 pm CLINICAL HISTORY: Shortness of breath COMPARISON: 2016 FINDINGS: The lungs appear clear of acute infiltrate. The heart is mildly enlarged IMPRESSION: No acute abnormalities displayed
--- NOTE | 2023-01-02 19:35 | RAD REPORT ---
EXAM DESCRIPTION: CT - Abdomen Wo Contrast - 01/02/2023 7:12 pm CLINICAL HISTORY: Abdominal pain / diarrhea COMPARISON: None TECHNIQUE: Computed axial tomography from the diaphragm to the iliac crest was obtained. Oral contra st was given. IV contrast was not requested. All CT scans are performed using dose optimization technique as appropriate and may include automated exposure control or mA/KV adjustment according to patient size. FINDINGS: The evaluation of solid organs and vessels is limited secondary to the lack of IV contrast administration. Liver, spleen, pancreas and adrenals appear grossly normal. A 23 millimeter soft tissue structure abuts the medial spleen. It is unchanged from the prior exam an d likely an accessory spleen. 2.2 centimeter low-density mass extends off of the left kidney. It is mildly enlarged from the prior exam. 2.2 centimeter low-density structure has developed within the right renal pelvis. Supraumbilical hernia contains fat. The neck measures 2.8 centimeters. The herniated sac measures 4.8 centimeters No ascites Cholelithiasis. No gallbladder wall thickening postsurgical changes right colon. She. Several structu res within the residual right colon may represent tablets IMPRESSION: Moderate supraumbilical hernia containing fat Cholelithiasis without evidence cholecystitis 2.2 centimeter low-density mass left kidney has enlarged since the prior exam it may represent a cyst . However, this should be confirmed with nonemergent ultrasound 2.2 centimeter low-density mass has developed within the right renal pelvis. This also may represent a cyst and can be evaluated with ultrasound
[2023-01-02] MEDS ORDERED: SODIUM PHOSPHATE 10 MM in NA CHLORIDE 0.9% 250 ML IV SCH (20:00)
[2023-01-02] MEDS: ONDANSETRON 4 MG/2 ML VIAL IV PRN (20:41)
[2023-01-02] MEDS: ENOXAPARIN 40 MG/0.4 ML SQ SCH (20:41)
[2023-01-02] MEDS ORDERED: POTASSIUM PHOS IN 0.9 % NACL 15 MMOL/250 ML BAG IV ONE (21:59)
[2023-01-02] MEDS ORDERED: POTASSIUM PHOS 20 MM in NA CHLORIDE 0.9% 500 ML IV ONE (22:00)
[2023-01-02] MEDS ORDERED: LABETALOL 20 MG/4ML SYRINGE IV PRN (23:00)
[2023-01-02 23:44] VITALS: BMI 27.4
[2023-01-03 06:35] LABS: Albumin 2.9 g/dL (3.4-5.0); Bilirubin Total 0.5 mg/dL (0.2-1.0); Potassium 3.6 mEq/L (3.5-5.1); Protein, Total 6.6 g/dL (6.4-8.2)
[2023-01-03 06:39] VITALS: O2SAT 98
[2023-01-03] MEDS ORDERED: POTASSIUM 25 MEQ EFFERV TAB PO ONE (08:00)
[2023-01-03] MEDS: POTASS/SODIUM PHOSPHATE 1 PKT POWD.PACK PO SCH ×2 (08:03→10:00)
[2023-01-03] MEDS: ENOXAPARIN 40 MG/0.4 ML SQ SCH (08:03)
[2023-01-03] MEDS: ONDANSETRON 4 MG/2 ML VIAL IV PRN (08:51)
[2023-01-03] MEDS ORDERED: ASPIRIN 81 MG CHEWABLE TABLET PO SCH (09:00)
[2023-01-03 12:31] VITALS: BP 166/77; TEMP 98.2
--- NOTE | 2023-01-03 12:38 | P.DS ---
Admission Date: 01/02/23 Discharge Date: 01/03/23 Disposition: ROUTINE DISCHARGE Discharge Condition: FAIR Reason for Admission: N\V\D, Adominal pain - Problems (1) Acute gastroenteritis Current Visit: Yes Status: Acute (2) COVID-19 virus infection Current Visit: Yes Status: Acute (3) Hyponatremia Current Visit: Yes Status: Acute (4) HTN (hypertension) Current Visit: No Status: Chronic Qualifiers: Hypertension type: essential hypertension Qualified Code(s): I10 - Essential (primary) hypertension Brief History of Present Illness: Patient is a 77-year-old female with a past medical history significant for hypothyroidism, hypertension, hemorrhoids, hemicolectomy who presented with c omplaint of diarrhea that has been ongoing for the 1 and half weeks. Patient also reported upper quadrant abdominal pain ongoing intermittently for same period of time. Patient reported associated signs and symptoms of nausea, vomiting, poor appetite and shortness of breath. She tested positive for COVID- 19 in the ED. Chest x-ray did not show any acute infiltrate. Blood work showed hyponatremia, patient was hospitalized for further management. Hospital Course: Patient admitted to the medical floor and aggressively hydrated with IV normal saline. Hyponatremia significantly improved. Sodium level improved to 132. No nausea or vomiting episode. Patient had intermittent diarrhea, no abdominal pain. She tolerated her diet. Stool studies are pending. Patient diagnosed with acute gastroenteritis secondary to COVID-19, bacterial infectious gastroenteritis not ruled out. Vitals have been stable. Patient is discharged oral ciprofloxacin and Flagyl and advised to continue oral rehydration. Vital Signs/Physical Exam: Temp Pulse Resp BP Pulse Ox 98.2 F 92 H 19 166/77 H 91 01/03/23 12:00 01/03/23 12:00 01/03/23 12:00 01/03/23 12:00 01/03/23 12:00 General: Alert, In no apparent distress, Oriented x3 HEENT: Mucous membr. moist/pink Neck: JVD not distended Respiratory: Clear to auscultation bilaterally, Normal air movement Cardiovascular: No edema, Regular rate/rhythm, Normal S1 S2 Gastrointestinal: Normal bowel sounds, Soft and benign, Non-distended, No tenderness Musculoskeletal: No swelling Integumentary: No rashes, No cyanosis Neurological: Normal strength at 5/5 x4 extr Laboratory Data at Discharge: WBC 3.00 thou/uL (4.3-10.9) L 01/02/23 14:17 Hgb 14.0 g/dL (12.0-15.0) 01/02/23 14:17 Hct 40.2 % (36.0-45.0) 01/02/23 14:17 Plt Count 157 thou/uL (152-406) 01/02/23 14:17 Sodium 132 mEq/L (136-145) L D 01/03/23 05:57 Potassium 3.6 mEq/L (3.5-5.1) 01/03/23 05:57 BUN 8 mg/dL (7-18) 01/03/23 05:57 Creatinine 0.83 mg/dL (0.55-1.02) 01/03/23 05:57 Glucose 117 mg/dL (74-106) H 01/03/23 05:57 Phosphorus 2.0 mg/dL (2.5-4.9) L 01/03/23 05:57 Magnesium 1.6 mg/dL (1.6-2.4) 01/02/23 18:40 Total Bilirubin 0.5 mg/dL (0.2-1.0) 01/03/23 05:57 AST 57 U/L (15-37) H 01/03/23 05:57 ALT 55 U/L (13-56) 01/03/23 05:57 Alkaline Phosphatase 95 U/L (45-117) 01/03/23 05:57 Lipase 50 U/L (13-75) 01/02/23 14:17 Home Medications: Albuterol Sulfate [Proair Hfa] 8.5 gm IH TID PRN #1 hfa.aer.ad 04/13/16 Lisinopril/Hydrochlorothiazide [Zestoretic 10-12.5 mg Tablet] 1 each PO DAILY WITH BREAKFAST #30 tablet 04/13/16 Calcium Carbonate/Vitamin D3 [Calcium 500 mg-Vit D3 600 Unit] 1 each PO DAILY 02/01/19 Levothyroxine Sodium [Synthroid] 50 mcg PO DAILY 01/02/23 Ciprofloxacin HCl [Cipro] 500 mg PO BID #10 tab 01/03/23 Metronidazole 500 mg PO TID #15 tab 01/03/23 New Medications: Ciprofloxacin HCl [Cipro] 500 mg PO BID #10 tab Metronidazole 500 mg PO TID #15 tab Diet: AHA Activity: Ad je Followup: NONE,NONE [Primary Care Provider] - Time spent managing pt's care (in minutes): 28
== END 2023-01-03 13:24 | disposition home or self-care (01) | DRG 640 ==
LOC: ER 13:27 → ERHOLD 17:51 → 4TH 19:21
PROVIDERS: ADMIT Hospitalist; ATTEND Internal Medicine
DX: E87.1 Hypo-osmolality and hyponatremia (principal); U07.1 COVID-19; A04.9 Bacterial intestinal infection, unspecified; N17.9 Acute kidney failure, unspecified; A08.39 Other viral enteritis; I10 Essential (primary) hypertension; E86.0 Dehydration; E87.6 Hypokalemia; E03.9 Hypothyroidism, unspecified; D63.8 Anemia in other chronic diseases classified elsewhere; K80.20 Calculus of gallbladder without cholecystitis without obstruction; E83.39 Other disorders of phosphorus metabolism; Z88.6 Allergy status to analgesic agent; Z88.8 Allergy status to other drugs, medicaments and biological substances; Z79.890 Hormone replacement therapy; Z79.899 Other long term (current) drug therapy; Z90.710 Acquired absence of both cervix and uterus; Z20.822 Contact with and (suspected) exposure to COVID-19
CPT/HCPCS: 0240U; 36415; 71046; 74150; 80053; 83690; 83735; 83880; 83930; 84100; 85025; 87045; 87046; 87177; 87209; 89055; 96361; 96374; 99285; J1650; J2405; J7030; J7040; J7120

== ENCOUNTER 2023-01-04 14:35 | Inpatient (IN) | payer OTHER ==
--- OUTSIDE RECORDS SUMMARY | 2023-01-04 14:38 | XMS REPORT | Continuity of Care Document ---
:[address] [facility] t Address [address] [place] [address] [address] [place] [address] Care Team Providers Name Role Phone Lisa Eduardo Attending Clinician Unavailable Luciana Costa Attending Clinician Unavailable Juan Francisco James Attending Clinician Unavailable Jeanine Quintana Attending Clinician Unavailable Payers Payer Name Policy Type Policy Number Effective Date Expiration Date S ource [facility] C1 [id number] Common Sp raudel ing Medicare - [facility] [employer] C1 [id number] Common Sp raudel ing Medicare - [facility] [employer] C1 [id number] Common Sp raudel ing Medicare - [facility] Problems Condition Condition Condition Status Onset Resolution Last Treating Co mments Source Name Details Category Date Date Treatment Clinician Date [id number] BMI Problem Common 32.0-32.9, [facility] adult [facility] Essential Essential Problem Com mon hypertensi hypertensi Sp raudel on on [facility] Serum TSH Abnormal Problem Comm on level TSH [facility] abnormal [facility] [id number] Abnormal Problem Comm on chest Spirit x-ray [facility] [id number] 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 - [facility] unspecifie Medica l d kyphosis Center type [id number] Environmen Problem Co mmon [place] [facility] allergies [facility] [id number] Hyperglyce Problem Com mon param [facility] [id number] 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, - [facility] unspecifie St d hearing [facility] loss type [facility] [id number] Acquired Problem Comm on hypothyroi Spirit dism [facility] [id number] Ob[place] [address] (BMI Spirit 30.0-34.9) [facility] 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 Spir it sterolemia [facility] Allergies, Adverse Reactions, Alerts Allergy Allergy Status Severity Reaction(s) Onset Inactive Treating Comm ents Source Name Type Date Date Clinician aspirin aspirin Active Unknown Common [facility] Benzodia Benzodia Active Unknown Commo n zepines zepines [facility] Social History Social Habit Start Date Stop Date Quantity Comments Source History of Tobacco Use Co mmon [facility] Sex Assigned At Com mon [facility] Smoking Status Start Date Stop Date Source Former Smoker 2022-09-16 00:00:00 2022-09-16 00:00:00 [facility] Medications Ordered Filled Start Stop Current Ordering [...] Hydrochloro Hydrochloro [facility] thiazide thiazide - [facility] Levothyroxi Levothyroxi Yes Jeanine 1 tablet Common ne Sodium ne Sodium [facility] in the Spirit morning on - [facility] an empty [facility] amLODIPine amLODIPine No 1{table amLODIPine Besylate Besylate t} Besylate 2.5 MG 2.5 MG 2.5 MG Immunizations Ordered Immunization Filled Immunization Date Status Commen ts Source Name Name FLUZONE HIGH DOSE FLUZONE HIGH DOSE 2022-08-11 Completed [facility] OVER 65 OVER 65 14:58:00 - [facility] FLUZONE HIGH DOSE FLUZONE HIGH DOSE 2022-08-11 Completed [facility] OVER 65 OVER 65 14:58:00 - [facility] FLUZONE HIGH DOSE FLUZONE HIGH DOSE 2022-08-11 Completed [facility] OVER 65 OVER 65 14:58:00 - [facility] FLUZONE HIGH DOSE FLUZONE HIGH DOSE 2022-08-11 Completed [facility] OVER 65 OVER 65 14:58:00 - [facility] FluAD FluAD 2021-08-23 Completed [facility] 09:07:00 [facility] FluAD FluAD 2021-08-23 Completed [facility] 09:07:00 - [facility] FluAD FluAD 2021-08-23 Completed [facility] 09:07:00 - [facility] FluAD FluAD 2021-08-23 Completed [facility] 09:07:00 - [facility] FluAD FluAD 2021-08-23 Completed [facility] 09:07:00 - [facility] FluAD FluAD 2021-08-23 Completed [facility] 09:07:00 [facility] FluAD FluAD 2021-08-23 Completed [facility] 09:07:00 - [facility] FluAD FluAD 2021-08-23 Completed [facility] 09:07:00 - [facility] FLUZONE HIGH DOSE FLUZONE HIGH DOSE 2020-07-09 Completed [facility] OVER 65 OVER 65 15:44:00 - [facility] FLUZONE HIGH DOSE FLUZONE HIGH DOSE 2020-07-09 Completed [facility] OVER 65 OVER 65 15:44:00 - [facility] FLUZONE HIGH DOSE FLUZONE HIGH DOSE 2020-07-09 Completed [facility] OVER 65 OVER 65 15:44:00 - [facility] FLUZONE HIGH DOSE FLUZONE HIGH DOSE 2020-07-09 Completed [facility] OVER 65 OVER 65 15:44:00 - [facility] FLUZONE HIGH DOSE FLUZONE HIGH DOSE 2020-07-09 Completed [facility] OVER 65 OVER 65 15:44:00 - [facility] FLUZONE HIGH DOSE FLUZONE HIGH DOSE 2020-07-09 Completed [facility] OVER 65 OVER 65 15:44:00 - [facility] FLUZONE HIGH DOSE FLUZONE HIGH DOSE 2020-07-09 Completed [facility] OVER 65 OVER 65 15:44:00 - [facility] FLUZONE HIGH DOSE FLUZONE HIGH DOSE 2020-07-09 Completed [facility] OVER 65 OVER 65 15:44:00 - [facility] FLUZONE HIGH DOSE FLUZONE HIGH DOSE 2020-07-09 Completed [facility] OVER 65 OVER 65 15:44:00 - [facility] FLUZONE HIGH DOSE FLUZONE HIGH DOSE 2020-07-09 Completed [facility] OVER 65 OVER 65 15:44:00 - [facility] FLUZONE HIGH DOSE FLUZONE HIGH DOSE 2020-07-09 Completed [facility] OVER 65 OVER 65 15:44:00 - [facility] Fluzone Fluzone 2018-07-25 Completed [facility] 10:29:00 - [facility] Fluzone Fluzone 2018-07-25 Completed [facility] 10:29:00 - [facility] Fluzone Fluzone 2018-07-25 Completed [facility] 10:29:00 - [facility] Fluzone Fluzone 2018-07-25 Completed [facility] 10:29:00 - [facility] Fluzone Fluzone 2018-07-25 Completed [facility] 10:29:00 - [facility] Fluzone Fluzone 2018-07-25 Completed [facility] 10:29:00 - [facility] Fluzone Fluzone 2018-07-25 Completed [facility] 10:29:00 - [facility] Fluzone Fluzone 2018-07-25 Completed [facility] 10:29:00 - [facility] Fluzone Fluzone 2018-07-25 Completed [facility] 10:29:00 - [facility] Fluzone Fluzone 2018-07-25 Completed [facility] 10:29:00 - [facility] Fluzone Fluzone 2018-07-25 Completed [facility] 10::00 - [facility] Vital Signs Vital Name Observation Time Observation Value Comments Source height 2022-09-16 09:00:00 60.50 [in_i] [facility] weight 2022-09-16 09:00:00 163.8 [lb_av] [facility] temperature 2022-09-16 09:00:00 97.6 [degF] [facility] bmi 2022-09-16 09:00:00 31.46 kg/m2 [facility] oximetry 2022-09-16 09:00:00 96 % [facility] respiratory rate 2022-09-16 09:00:00 18 /min Comm on [facility] blood pressure 2022-09-16 09:00:00 136 mm[Hg] Common [facility] systolic [facility] blood pressure 2022-09-16 09:00:00 72 mm[Hg] [facility] diastolic [facility] height 2022-08-11 13:40:00 60.50 [in_i] [facility] weight 2022-08-11 13:40:00 165 [lb_av] [facility] temperature 2022-08-11 13:40:00 97.2 [degF] Common S pirit [facility] bmi 2022-08-11 13:40:00 31.69 kg/m2 [facility] oximetry 2022-08-11 13:40:00 93 % Common [facility] respiratory rate 2022-08-11 13:40:00 20 /min Comm on [facility] blood pressure 2022-08-11 13:40:00 142 mm[Hg] Common [facility] - systolic [facility] blood pressure 2022-08-11 13:40:00 96 mm[Hg] [facility] - diastolic [facility] height 2022-08-11 13:00:00 60.50 [in_i] Common [facility] weight 2022-08-11 13:00:00 165 [lb_av] Common [facility] temperature 2022-08-11 13:00:00 97.2 [degF] Common S [facility] bmi 2022-08-11 13:00:00 31.69 kg/m2 [facility] oximetry 2022-08-11 13:00:00 93 % [facility] respiratory rate 2022-08-11 13:00:00 20 /min Comm on [facility] blood pressure 2022-08-11 13:00:00 176 mm[Hg] Common [facility] - systolic [facility] blood pressure 2022-08-11 13:00:00 94 mm[Hg] [facility] - diastolic [facility] height 2022-02-07 11:00:00 60.50 [in_i] Common S [facility] weight 2022-02-07 11:00:00 164.2 [lb_av] Common [facility] temperature 2022-02-07 11:00:00 98.0 [degF] [facility] bmi 2022-02-07 11:00:00 31.54 kg/m2 [facility] oximetry 2022-02-07 11:00:00 95 % [facility] respiratory rate 2022-02-07 11:00:00 16 /min Comm on [facility] blood pressure 2022-02-07 11:00:00 135 mm[Hg] [facility] - systolic [facility] blood pressure 2022-02-07 11:00:00 77 mm[Hg] [facility] - diastolic [facility] height 2021-10-26 11:20:00 60.50 [in_i] Common [facility] weight 2021-10-26 11:20:00 161 [lb_av] [facility] bmi 2021-10-26 11:20:00 30.92 kg/m2 [facility] height 2021-07-23 11:40:00 60.50 [in_i] [facility] weight 2021-07-23 11:40:00 161 [lb_av] [facility] temperature 2021-07-23 11:40:00 97.8 [degF] [facility] bmi 2021-07-23 11:40:00 30.92 kg/m2 [facility] oximetry 2021-07-23 11:40:00 95 % [facility] respiratory rate 2021-07-23 11:40:00 20 /min Comm on [facility] blood pressure 2021-07-23 11:40:00 128 mm[Hg] Common [facility] - systolic [facility] blood pressure 2021-07-23 11:40:00 70 mm[Hg] Common [facility] - diastolic [facility] height 2021-04-23 11:40:00 60.50 [in_i] Common [facility] weight 2021-04-23 11:40:00 154.8 [lb_av] [facility] temperature 2021-04-23 11:40:00 97.4 [degF] Common [facility] bmi 2021-04-23 11:40:00 29.73 kg/m2 Common [facility] oximetry 2021-04-23 11:40:00 96 % Common [facility] respiratory rate 2021-04-23 11:40:00 18 /min Comm on [facility] blood pressure 2021-04-23 11:40:00 148 mm[Hg] Common [facility] systolic [facility] blood pressure 2021-04-23 11:40:00 92 mm[Hg] Common [facility] diastolic [facility] Procedures This patient has no known procedures. Encounters Start End Encounter Admission Attending Care Care Encounter Source Date/Time Date/Time Type Type Clinicians Facility Department ID 2022-12-19 Outpatient Alesha, STLMLC STLMLC [id number] Common 16:38:00 Lisa [id number] [facility] 2022-09-01 Outpatient Costa, Na STLMLC STLMLC [id number] Common 16:11:01 [facility] 2022-08-09 Outpatient Costa, Na STLMLC STLMLC [id number] Common 15:10:01 [facility] 2022-02-07 Outpatient Costa, Na STLMLC STLMLC [id number] Common 10:55:01 [facility] 2021-11-10 Outpatient Costa, Na STLMLC STLMLC [id number] Common 14:39:13 [facility] 2021-11-10 Outpatient Costa, Na STLMLC STLMLC [id number] Common 14:32:18 [facility] 2021-11-10 Outpatient Costa, Na STLMLC STLMLC [id number] Common 13:57:22 [id number] [facility] 2021-11-10 Outpatient Costa, Na STLMLC STLMLC [id number] Common 13:22:51 [id number] [facility] 2021-11-10 Outpatient Luciana Costa STLMLC STLMLC [id number] Common 12:44:11 [id number] [facility] 2021-11-10 Outpatient STLMLC STLMLC [id number] Common 12:23:12 [id number] [facility] 2021-11-10 Outpatient Juan Francisco James STLMLC STLMLC [id number] Common 12:08:17 [id number] [facility] 2021-11-10 Outpatient Millender, STLMLC STLMLC [id number] Common 11:48:28 Jeanine [id number] [facility] 2021-11-10 Outpatient Mill[place], STLMLC STLMLC [id number] Common 11:13:29 Jeanine [id number] [facility] 2021-11-10 Outpatient Mill[place], STLMLC STLMLC [id number] Common 11:07:08 Jeanine [id number] [facility] 2021-11-10 Outpatient Mill[place], STLMLC STLMLC [id number] Common 11:01:34 Jeanine [id number] [facility] 2022-09-16 2022-09-16 OFFICE STLMLC STLMLC [id number] Co mmon 00:00:00 00:00:00 VISIT EST Spir it PT LEVEL 3 - [facility] 2022-08-24 2022-08-24 (TEL) STLMLC STLMLC [id number] Co mmon 00:00:00 00:00:00 [facility] 2022-08-11 2022-08-11 SUB ANNUAL STLMLC STLMLC [id number] Common 00:00:00 00:00:00 MCR [facility] VISIT [facility] 2022-08-11 2022-08-11 OFFICE STLMLC STLMLC [id number] Co mmon 00:00:00 00:00:00 VISIT EST Spir it PT LEVEL 3 [facility] 2022-04-07 2022-04-07 (TEL) STLMLC STLMLC [id number] Co mmon 00:00:00 00:00:00 [facility] 2022-02-07 2022-02-07 OFFICE STLMLC STLMLC [id number] Co mmon 00:00:00 00:00:00 VISIT [facility] PT - [facility] LEVEL 4 [facility] 2021-10-26 2021-10-26 OL DIG E/M STLMLC STLMLC [id number] Common 00:00:00 00:00:00 C 20 Spir it MIN - [facility] 2021-10-06 2021-10-06 (TEL) STLMLC STLMLC [id number] Co mmon 00:00:00 00:00:00 [facility] 2021-07-23 2021-07-23 OFFICE STLMLC STLMLC [id number] Co mmon 00:00:00 00:00:00 VISIT EST Spir it PT LEVEL 3 - [facility] 2021-05-06 2021-05-06 (TEL) STLMLC STLMLC [id number] Co mmon 00:00:00 00:00:00 [facility] 2021-04-23 2021-04-23 OFFICE STLMLC STLMLC [id number] Co mmon 00:00:00 00:00:00 VISIT [facility] PT [facility] LEVEL 4 [facility] 2021-01-20 2021-01-20 Outpatient STLMLC STLMLC [id number] Common 00:00:00 00:00:00 [facility] 2021-01-07 2021-01-07 Outpatient STLMLC STLMLC [id number] Common 00:00:00 00:00:00 [facility] 2021-01-07 2021-01-07 Outpatient STLMLC STLMLC [id number] Common 00:00:00 00:00:00 [facility] 2020-11-04 2020-11-04 Outpatient STLMLC STLMLC [id number] Common 00:00:00 00:00:00 [facility] 2020-07-09 2020-07-09 Outpatient STLMLC STLMLC [id number] Common 00:00:00 00:00:00 [facility] 2020-01-01 2020-01-01 Out[facility] [id number] Common 14:36:00 14:36:00 t [facility] [address] [facility] [facility] 2019-12-30 2019-12-30 Out[facility] [id number] Common 09:30:00 09:30:00 t [facility] [address] [facility] [address] [facility] 2019-11-27 2019-11-27 [facility] [id number] Common 11:15:00 11:15:00 t [facility] [address] [facility] [address] [facility] 2019-11-11 2019-11-11 Out[facility] [id number] Common 20:20:00 20:20:00 t [facility] [address] [facility] [facility] 2019-11-03 2019-11-03 Out[facility] [id number] Common 17:42:00 17:42:[address] [facility] 2019-11-01 2019-11-01 Out[facility] [id number] Common 15:45:00 15:45:00 t [facility] [address] [facility] [address] [facility] Results This patient has no known results.
--- NOTE | 2023-01-04 16:09 | RAD REPORT ---
EXAM DESCRIPTION: [place] Single View01/04/2023 3:17 pm CLINICAL HISTORY: DYSPNEA COMPARISON: Chest Pa And Lat (2 Views) dated 01/02/2023; Chest Pa And Lat (2 Views) dated 04/13/2016; Chest Pa And Lat (2 Views) dated 04/12/2016; Chest Pa And Lat (2 Views) dated 01/28/2016 TECHNIQUE: Portable AP view of the chest. FINDINGS: The lungs are clear.Stable bibasilar streaky opacities more pronounced on the left, with b lunting of the right costophrenic angle, may relate to pleural thickening or scarring. Hyperinflation . No pneumothorax or effusion. The cardiomediastinal contours are unremarkable. IMPRESSION: No acute process. No significant interval change.
[2023-01-04 16:22] LABS: Absolute Lymphocytes (CBC) 0.9 K/uL (0.7-4.9); Hematocrit 36.3 % (36.0-45.0); Lymphocytes % 23.9 % (15.3-44.8); RBC Red Blood Cell Count 3.99 M/uL (3.86-4.86)
[2023-01-04 16:51] LABS: Albumin 3.4 g/dL (3.4-5.0); Bilirubin Total 0.7 mg/dL (0.2-1.0); Potassium 3.2 mEq/L (3.5-5.1); Protein, Total 7.2 g/dL (6.4-8.2)
--- NOTE | 2023-01-04 17:00 | EDPHYS ---
Physician Documentation [facility] Name: Joanie Infante Age: 77 yrs Sex: Female : 1945 Arrival Date: 01/04/2023 Time: 14:36 Bed 6 Private MD: ED Physician Gonzalo Gonzales HPI: 01/04 16:49 This 77 yrs old Female presents to ER via Ambulatory with complaints of covid+, kb Anxiety, Diarrhea. 16:49 The patient presents to the emergency department with diarrhea. Onset: The kb symptoms/episode began/occurred 2 week(s) ago. Possible causes: COVID. The symptoms are aggravated by nothing. The symptoms are alleviated by nothing. Associated signs and symptoms: Pertinent positives: diarrhea. Severity of symptoms: At their worst the symptoms were mild moderate in the emergency department the symptoms are unchanged. The patient has not experienced similar symptoms in the past. The patient has been recently been admitted at [facility], was discharged yesterday, for similar complaints. Patient presents for sore throat, shortness of breath, malaise and diarrhea that started 2 weeks ago. Was seen here on Monday and admitted for hyponatremia, dehydration. Discharged yesterday. Presents today because she is not feeling any better.. Historical: - Allergies: 14:57 Aspirin; ap3 - PMHx: 14:57 Hypertensive disorder; Thyroid problem; ap3 - Immunization history:: Client reports having NOT received the Covid vaccine. Flu vaccine is not up to date. - Social history:: Smoking status: Patient denies any tobacco usage or history of. ROS: 16:43 Cardiovascular: Negative for chest pain, palpitations, and edema. kb 16:43 Constitutional: Positive for malaise. 16:43 ENT: Positive for sore throat. 16:43 Respiratory: Positive for shortness of breath. 16:43 Abdomen/GI: Positive for diarrhea. 16:43 All other systems are negative. Exam: 16:49 Constitutional: This is a well developed, well nourished patient who is awake, alert, kb and in no acute distress. Head/Face: Normocephalic, atraumatic. ENT: Moist Mucous membranes Cardiovascular: Regular rate and rhythm with a normal S1 and S2. No gallops, murmurs, or rubs. No pulse deficits. Respiratory: Respirations even and unlabored. No increased work of breathing. Talking in full sentences Abdomen/GI: Soft, non-tender. No distention Skin: Warm, dry with normal turgor. Normal color. MS/ Extremity: Pulses equal, no cyanosis. Neurovascular intact. Full, normal range of motion. Neuro: Awake and alert, GCS 15, oriented to person, place, time, and situation. Moves all extremities. Normal gait. 18:07 ECG was reviewed by the Attending Physician. rt Vital Signs: 14:53 BP 139 / 84; Pulse 98; Resp 21; Temp 97.6(O); Pulse Ox 98% ; Weight 70.31 kg; Height 5 ap3 ft. 3 in. ; 17:15 BP 150 / 85; Pulse 92; Resp 20; Pulse Ox 97% ; kc6 17:45 BP 152 / 113; Pulse 93; Resp 21; Pulse Ox 97% ; kc6 18:45 BP 146 / 86; Pulse 93; Resp 18; Pulse Ox 96% on R/A; Pain 3/10; sg5 20:30 BP 145 / 69; Pulse 81; Resp 20; Pulse Ox 94% on R/A; ha1 14:53 Body Mass Index 27.46 (70.31 kg, 160.02 cm) ap3 18:45 Pain Scale: Adult sg5 MDM: 14:59 Patient medically screened. kb 16:43 Differential diagnosis: viral Infection, bacterial infection, Dehydration, COVID, kb pneumonia. Data reviewed: vital signs, nurses notes. 16:47 Historians other than the Patient: Family Member: family member. External Records kb Reviewed: Inpatient record: Discharge summary from recent admission reviewed. 16:57 Consideration of Admission/Observation Patient was admitted/placed on observation. kb Management of patient was discussed with the following: Hospitalist: KWAKU Dueñas accepts pt for admission under Dr Mccauley. Counseling: I had a detailed discussion with the patient and/or guardian regarding: the historical points, exam findings, and any diagnostic results supporting the discharge/admit diagnosis, lab results, radiology results, the need for further work-up and treatment in the hospital. 01/04 14:58 Order name: CBC with Diff; Complete Time: 16:31 kb 01/04 14:58 Order name: CMP; Complete Time: 16:55 kb 01/04 14:58 Order name: Lipase; Complete Time: 16:55 kb 01/04 18:09 Order name: Creatine Phosphokinase EDDC 01/04 18:09 Order name: Magnesium [facility]DC 01/04 18:09 Order name: Phosphorus [facility] 01/04 18:09 Order name: T4 Free [facility] 01/04 18:09 Order name: Thyroid Stimulating Hormone [facility] 01/04 18:09 Order name: Urinalysis w/ reflexes [facility] 01/04 18:09 Order name: Basic Metabolic Panel [facility] 01/04 18:09 Order name: Basic Metabolic Panel [facility] 01/04 18:09 Order name: CBC with Automated Diff [facility] 01/04 18:09 Order name: CBC with Automated Diff [facility] 01/04 18:16 Order name: Fecal Leukocyte Stain [facility] 01/04 18:16 Order name: Ova and Parasites [facility] 01/04 18:16 Order name: Stool Culture [facility] 01/04 18:20 Order name: Osmolality, Serum [facility] 01/04 18:20 Order name: Osmolality, Urine [facility] 01/04 18:20 Order name: Sodium Level [facility] 01/04 18:20 Order name: UR POTASSIUM [facility] 01/04 18:20 Order name: UR SODIUM [facility] 01/04 20:10 Order name: SARS RAPID 01/04 20:43 Order name: Basic Metabolic Panel [facility] 01/04 20:44 Order name: SARS-COV-2 Antigen Rapid [facility] 01/04 14:58 Order name: Chest Single View XRAY; Complete Time: 16:10 kb 01/04 16:58 Order name: EKG; Complete Time: 16:59 kb 01/04 18:09 Order name: Heart Healthy [facility] 01/04 14:58 Order name: IV Saline Lock; Complete Time: 16:14 kb 01/04 14:58 Order name: Labs collected and sent; Complete Time: 16:14 kb 01/04 16:58 Order name: EKG - Nurse/Tech; Complete Time: 17:45 kb EC:07 Rate is 96 beats/min. Rhythm is regular, Normal Sinus Rhythm with No ectopy. QRS [place] rt is Normal. OR interval is normal. QRS interval is normal. QT interval is normal. No Q waves. Clinical impression: NSR w/ Non-specific ST/T Changes. Administered Medications: 17:15 Drug: NS 0.9% IV 1000 ml Route: IV; Rate: 75 ml/hr; Site: right antecubital; kc6 18:51 Follow up: Response: No adverse reaction; IV Status: Infusion continued upon admission kc6 Disposition: 18:08 Co-signature as Attending Physician, Gonzalo Gonzales MD I reviewed the patient's care rt provided by the Advanced Practice Provider and agree with the diagnosis and treatment plan. Disposition Summary: 01/04/23 16:59 Hospitalization Ordered Hospitalization Status: Inpatient Admission kb Provider: Gerard Mccauley [facility] kb Condition: Stable kb Problem: new kb Symptoms: are unchanged kb Bed/Room Type: Standard kb Room Assignment: 403(01/04/23 21:33) cg Diagnosis - Hyponatremia kb - SARS-associated coronavirus as the cause of diseases classified elsewhere kb - Diarrhea, unspecified kb Forms: - Medication Reconciliation Form kb - SBAR form kb Signatures: Dispatcher [employer] Enedina Brunner FNP-C FNP-Amanda Ferguson RN RN cg Rebeca Olivera RN RN ap3 Aneta Roy RN RN kc6 Gonzalo Gonzales MD MD rt Corrections: (The following items were deleted from the chart) 21:33 16:59 kb cg
--- NOTE | 2023-01-04 17:00 | ER ---
Nurse's Notes [facility] Name: Joanie Infante Age: 77 yrs Sex: Female : 1945 Arrival Date: 01/04/2023 Time: 14:36 Bed 6 Private MD: Diagnosis: Hyponatremia;SARS-associated coronavirus as the cause of diseases classified elsewhere;Diarrhea, unspecified Presentation: 01/04 14:53 Chief complaint: patient has been having diarrhea, and hasn't been eating much. family ap3 member states the patient has not improved since her discharge from her recent hospital stay. Coronavirus screen: Client reports previous positive COVID test result. Date of collection: January 02, 2023. Ebola Screen: No symptoms or risks identified at this time. Initial Sepsis Screen: Does the patient meet any 2 criteria? No. Patient's initial sepsis screen is negative. Does the patient have a suspected source of infection? No. Patient's initial sepsis screen is negative. Risk Assessment: Do you want to hurt yourself or someone else? Patient reports no desire to harm self or others. Onset of symptoms is unknown. 14:53 Method Of Arrival: Ambulatory ap3 14:53 Acuity: BOLA 3 ap3 Triage Assessment: 14:57 General: Appears distressed, Behavior is anxious. Pain: Complains of pain in throat. ap3 EENT: Reports pain in throat. Neuro: Level of Consciousness is awake, alert, obeys commands, Oriented to person, place, time, situation, Gait is steady. Cardiovascular: Patient's skin is warm and dry. Respiratory: Airway is patent Respiratory effort is even, unlabored, Respiratory pattern is regular, symmetrical. GI: Reports diarrhea. Historical: - Allergies: 14:57 Aspirin; ap3 - PMHx: 14:57 Hypertensive disorder; Thyroid problem; ap3 - Immunization history:: Client reports having NOT received the Covid vaccine. Flu vaccine is not up to date. - Social history:: Smoking status: Patient denies any tobacco usage or history of. Screenin:58 Abuse screen: Denies threats or abuse. Nutritional screening: No deficits noted. ap3 Tuberculosis screening: No symptoms or risk factors identified. 18:45 [facility] ED Fall Risk Assessment (Adult) History of falling in the last 3 months, sg5 including since admission No falls in past 3 months (0 pts). Assessment: 16:06 Reassessment: pt seen pacing in and out of ED lobby; asked pt if needed any assistance, vg1 pt stated "im not feeling good at all, my throat is killing me" Provider notified. 17:00 Reassessment: PT MOVED TO ED06. ADMIT IN PROCESS. kc6 17:00 General: Appears in no apparent distress. comfortable, Behavior is calm, cooperative, kc6 appropriate for age. Pain: Denies pain. Neuro: Vera Agitation-Sedation Scale (RASS): 0 - Alert and Calm Level of Consciousness is awake, alert, obeys commands, Oriented to person, place, time, situation, Appropriate for age. Cardiovascular: Capillary refill < 3 seconds. Respiratory: Airway is patent Trachea midline Respiratory effort is even, unlabored, Respiratory pattern is regular, symmetrical. GI: Reports diarrhea, Patient currently denies nausea, vomiting. : No signs and/or symptoms were reported regarding the genitourinary system. EENT: No signs and/or symptoms were reported regarding the EENT system. Derm: No signs and/or symptoms reported regarding the dermatologic system. Skin is intact, Skin is pink, warm \\T\\ dry. Musculoskeletal: No signs and/or symptoms reported regarding the musculoskeletal system. Circulation, motion, and sensation intact. Capillary refill < 3 seconds, Range of motion: intact in all extremities. 18:00 Reassessment: Patient appears in no apparent distress at this time. No changes from kc6 previously documented assessment. Patient and/or family updated on plan of care and expected duration. Pain level reassessed. Patient is alert, oriented x 3, equal unlabored respirations, skin warm/dry/pink. Patient denies pain at this time. 18:30 Reassessment: please see [facility] for further charting. kc6 Vital Signs: 14:53 BP 139 / 84; Pulse 98; Resp 21; Temp 97.6(O); Pulse Ox 98% ; Weight 70.31 kg; Height 5 ap3 ft. 3 in. ; 17:15 BP 150 / 85; Pulse 92; Resp 20; Pulse Ox 97% ; kc6 17:45 BP 152 / 113; Pulse 93; Resp 21; Pulse Ox 97% ; kc6 18:45 BP 146 / 86; Pulse 93; Resp 18; Pulse Ox 96% on R/A; Pain 3/10; sg5 20:30 BP 145 / 69; Pulse 81; Resp 20; Pulse Ox 94% on R/A; ha1 14:53 Body Mass Index 27.46 (70.31 kg, 160.02 cm) ap3 18:45 Pain Scale: Adult sg5 ED Course: 14:36 Patient arrived in ED. am2 14:41 [facility]. kb 14:41 Gonzalo Gonzales MD is Attending Physician. kb 14:57 Triage completed. ap3 14:58 Arm band placed on right wrist. ap3 15:18 Chest Single View XRAY In Process Unspecified. EDMS 16:14 Inserted saline lock: 20 gauge in right antecubital area, using aseptic technique. zm Blood collected. 16:14 CBC with Diff Sent. zm 16:14 CMP Sent. zm 16:14 Lipase Sent. zm 16:58 Gerard Mccauley is Hospitalizing Provider. kb 16:59 Ever Sheth, RN is Primary Nurse. bp 18:45 Patient has correct armband on for positive identification. Bed in low position. Call sg5 light in reach. Side rails up X 1. Valuables Left with patient. 23:14 No provider procedures requiring assistance completed. Patient admitted, IV remains in ha1 place. Administered Medications: 17:15 Drug: NS 0.9% IV 1000 ml Route: IV; Rate: 75 ml/hr; Site: right antecubital; kc6 18:51 Follow up: Response: No adverse reaction; IV Status: Infusion continued upon admission kc6 Medication: 23:15 VIS not applicable for this client. ha1 Outcome: 16:59 Decision to Hospitalize by Provider. kb 23:14 Admitted to Tele accompanied by nurse, via wheelchair, room 418, with chart, Report ha1 called to BETH Rg 23:14 Condition: stable 23:15 Patient left the ED. ha1 Signatures: Dispatcher [employer] EDIL Enedina Duong FNP-C FNP-Rebeca Mills am2 Ever Sheth, RN RN bp Rebeca Olivera RN RN ap3 Jade Gonsalez RN RN 1 Lynda Bunch Ros Ag RN RN 1 Aneta Roy RN RN kc6 Geronimo, Anabelle, RN RN sg5
[2023-01-04] MEDS ORDERED: NA CHLORIDE 0.9% 1,000 ML ONE ×2 (17:08→20:07)
[2023-01-04] MEDS ORDERED: ACETAMINOPHEN 325 MG TABLET PO PRN (18:04)
[2023-01-04] MEDS ORDERED: ONDANSETRON 4 MG/2 ML VIAL IV PRN (18:05)
[2023-01-04] MEDS ORDERED: PHENOL 1.4% ORAL SPRAY 180ML MM PRN (18:06)
--- NOTE | 2023-01-04 18:14 | P.HP ---
Certification for Inpatient Patient admitted to: Inpatient With expected LOS: >2 Midnights Patient will require the following post-hospital care: None Practitioner: I am a practitioner with admitting privileges, knowledge of patient current condition, hospital course, and medical plan of care. Services: Services provided to patient in accordance with Admission requirements found in Title 42 Section 412.3 of the Code of Federal Regulations Patient History Date of Service: 01/04/23 Reason for admission: Sore throat, Diarrhea History of Present Illness: Patient is a 77-year-old female with a past medical history significant for hypothyroidism, hypertension, hemorrhoids, hemicolectomy who presents with complaint of diarrhea and sore throat. Patient reported that she has been having diarrhea for the past 2 weeks. Patient was discharged from the hospital yesterday after being treated for similar symptoms and COVID-19 infection. Patient reported that on getting home, symptoms became worse, and patient was having intermittent shortness of breath. Patient reported associated signs and symptoms of headache, nausea, generalized malaise, restlessness, poor appetite and nasal congestion. Patient denies any other signs or symptoms. Symptoms are aggravated or relieved by nothing. Patient was brought to the hospital for medical evaluation. Allergies aspirin Allergy (Verified 05/17/17 13:23) Unknown diazepam [From Valium] Adverse Reaction (Verified 05/17/17 13:23) [facility] Medications: Albuterol Sulfate [Proair Hfa] 8.5 gm IH TID PRN #1 [email or web address] 04/13/16 Lisinopril/Hydrochlorothiazide [Zestoretic 10-12.5 mg Tablet] 1 each PO DAILY WITH BREAKFAST #30 tablet 04/13/16 Levothyroxine Sodium [Synthroid] 0.025 mg PO DAILY 01/02/23 Ciprofloxacin HCl [Cipro] 500 mg PO BID #10 tab 01/03/23 Metronidazole 500 mg PO TID #15 tab 01/03/23 - Past Medical/Surgical History Diabetic: No -: HTN -: Colon polyps -: exploratory lap 30yrs ago -: hysterectomy 28 yrs ago -: left elbow more than 50 yrs ago Psychosocial/ Personal History: She is a , has 3 children. She lives with a special needs daughter. She takes care of her. - Family History Mother -: Hypertension Notes: mother had adult onset leukemia, copd - Social History Smoking Status: Never smoker Alcohol use: No CD- Drugs: No Caffeine use: No Place of Residence: Home Review of Systems General: Malaise, Other (Poor appetite ) Eyes: Unremarkable ENT: Other (Nasal congestion ) Respiratory: Shortness of Breath Cardiovascular: Unremarkable Gastrointestinal: Nausea Genitourinary: Unremarkable Musculoskeletal: Unremarkable Integumentary: Unremarkable Neurological: Other (HEadache) Lymphatics: Unremarkable Physical Examination - Physical Exam General: Alert, In no apparent distress, Oriented x3, Cooperative HEENT: Atraumatic, PERRLA, Mucous membr. moist/pink, EOMI, Sclerae nonicteric Neck: Supple, 2+ carotid pulse no bruit, No LAD, Without JVD or thyroid abnormality Respiratory: Clear to auscultation bilaterally, Normal air movement Cardiovascular: No edema, Regular rate/rhythm, Normal S1 S2 Capillary refill: <2 Seconds Gastrointestinal: Normal bowel sounds, Soft and benign, No tenderness Musculoskeletal: No clubbing, No swelling, No tenderness Integumentary: No rashes, No breakdown, No significant lesion Neurological: Normal speech, Normal tone, Normal affect Lymphatics: No axilla or inguinal lymphadenopathy - Studies Laboratory Data (last 24 hrs) 01/04/23 16:12: Sodium 118 L*, Potassium 3.2 L, BUN 7, Creatinine 0.94, Glucose 131 H, Total Bilirubin 0.7, AST 90 H, ALT 76 H, Alkaline Phosphatase 103, Lipase 30 01/04/23 16:12: WBC 3.90 L, Hgb 12.8, Hct 36.3, Plt Count 184 Assessment and Plan - Plan --COVID-19 infection. Chest x-ray indicates No acute process. No significant interval change. O2 sat WNL on RA. Continue airborne and contact precautions. --Hyponatremia. Serum\urine osmolality, urine sodium pending for further evalu ation. Sodium on presentation to the ER was 119. Nephrology consulted. We will await further recommendation from fire extinguisher sprinkler inspector. --LEATHA. Likely prerenal. Secondary to fluid losses. Patient given IV hydration in the ER. Avoid nephrotoxins. Further mgt per fire extinguisher sprinkler inspector --Hypertension. Poorly controlled. We will manage BP with labetalol as needed. --Hypokalemia\Hypophosphatemia\Hypomagnesemia. Replete as needed. --Anemia of chronic disease. H&H stable. We will continue to monitor hemoglobin and transfuse if less than 7.0. --Diarrhea. We will get stool studies to rule out infectious process. Continue IV hydration. --Nausea. Antiemetics on board. Continue supportive care. --Anxiety Disorder. Patient placed on Xanax --DVT prophylaxis with Lovenox subQ. Discharge Plan: Home Plan to discharge in: Greater than 2 days - Advance Directives Does patient have a Living Will: Yes Does patient have a Durable POA for Healthcare: Yes - Code Status/Comfort Care Code Status Assessed: Yes Physician Review: Patient Assessed, Agree with Above Assessment and Plan Critical Care: No
[2023-01-04] MEDS ORDERED: CHLORASEPTIC LOZENGES MM PRN (18:23)
[2023-01-04 18:50] VITALS: BMI 27.3
[2023-01-04] MEDS ORDERED: ALPRAZOLAM 0.25 MG TABLET ONE (20:06)
[2023-01-04] MEDS ORDERED: ENOXAPARIN 40 MG/0.4 ML SQ ONE (20:07)
[2023-01-04] MEDS: NA CHLORIDE 0.9% 1,000 ML IV SCH (20:14)
[2023-01-04] MEDS: ENOXAPARIN 40 MG/0.4 ML SQ SCH (20:14)
[2023-01-04] MEDS: ALPRAZOLAM 0.25 MG TABLET PO SCH (20:14)
[2023-01-04 20:37] LABS: Magnesium 1.1 mg/dL (1.6-2.4)
[2023-01-04 20:42] LABS: Phosphorus 1.5 mg/dL (2.5-4.9)
[2023-01-04 20:43] LABS: Potassium 3.1 mEq/L (3.5-5.1)
[2023-01-04 20:44] LABS: SARS-CoV-2 Antigen Rapid Res Negative (Negative)
--- NOTE | 2023-01-04 21:55 | P.CNS ---
Date of Consult: 01/04/23 Reason for Consult: Acute Hyponatremia Requesting Physician: shante roberts Chief Complaint: Diarrhea in the setting of COVID History of Present Illness: [facility] 16:49 This 77 yrs old Female presents to ER via Ambulatory with complaints of covid+, kb Anxiety, Diarrhea. 16:49 The patient presents to the emergency department with diarrhea. Onset: The kb symptoms/episode began/occurred 2 week(s) ago. Possible causes: COVID. The symptoms are aggravated by nothing. The symptoms are alleviated by nothing. Associated signs and symptoms: Pertinent positives: diarrhea. Severity of symptoms: At their worst the symptoms were mild moderate in the emergency department the symptoms are unchanged. The patient has not experienced similar symptoms in the past. The patient has been recently been admitted at [facility], was discharged yesterday, for similar complaints. Patient presents for sore throat, shortness of breath, malaise and diarrhea that started 2 weeks ago. Was seen here on Monday and admitted for hyponatremia, dehydration. Discharged yesterday. Presents today because she is not feeling any better.. Patient is a 77-year-old female with a past medical history significant for hypothyroidism, hypertension, hemorrhoids, hemicolectomy who presents with complaint of diarrhea and sore throat. Patient reported that she has been having diarrhea for the past 2 weeks. Patient was discharged from the hospital yesterday after being treated for similar symptoms and COVID-19 infection. Patient reported that on getting home, symptoms became worse, and patient was having intermittent shortness of breath. Patient reported associated signs and symptoms of headache, nausea, generalized malaise, restlessness, poor appetite a nd nasal congestion. Patient denies any other signs or symptoms. Symptoms are aggravated or relieved by nothing. Patient was brought to the hospital for medical evaluation. Allergies aspirin Allergy (Verified 05/17/17 13:23) Unknown diazepam [From Valium] Adverse Reaction (Verified 05/17/17 13:23) [facility] Home medications list reviewed: Yes Home Medications: Albuterol Sulfate [Proair Hfa] 8.5 gm IH TID PRN #1 [email or web address] 04/13/16 Lisinopril/Hydrochlorothiazide [Zestoretic 10-12.5 mg Tablet] 1 each PO DAILY WITH BREAKFAST #30 tablet 04/13/16 Levothyroxine Sodium [Synthroid] 0.025 mg PO DAILY 01/02/23 Ciprofloxacin HCl [Cipro] 500 mg PO BID #10 tab 01/03/23 Metronidazole 500 mg PO TID #15 tab 01/03/23 - Past Medical/Surgical History Diabetic: No -: HTN -: Hypothyroidism -: Hx Hyponatremia (Dr. Amado) -: Colon Polyps -: exploratory lap 30yrs ago -: hysterectomy 28 yrs ago -: left elbow more than 50 yrs ago Psychosocial/ Personal History: She is a , has 3 children. She lives with a special needs daughter. She takes care of her. - Family History Mother Medical History: Hypertension Notes: mother had adult onset leukemia, copd - Social History Alcohol use: No CD- Drugs: No Caffeine use: No Place of Residence: Home Review of Systems 10-point ROS is otherwise unremarkable General: Weakness, Malaise Gastrointestinal: Diarrhea Physical Examination Temp Pulse Resp BP Pulse Ox 97.9 F 83 20 146/77 H 93 01/04/23 20:00 01/04/23 20:00 01/04/23 20:00 01/04/23 20:00 01/04/23 20:00 General: Oriented x3, Cooperative HEENT: Atraumatic Neck: Supple Respiratory: Normal air movement Cardiovascular: No edema, Regular rate/rhythm Gastrointestinal: Non-distended, No guarding Musculoskeletal: No clubbing, No contractures Integumentary: No rashes, No cyanosis Neurological: Normal speech Laboratory Data (last 24 hrs) 01/04/23 16:12: Sodium 118 L*, Potassium 3.2 L, BUN 7, Creatinine 0.94, Glucose 131 H, Total Bilirubin 0.7, AST 90 H, ALT 76 H, Alkaline Phosphatase 103, Lipase 30 01/04/23 16:12: WBC 3.90 L, Hgb 12.8, Hct 36.3, Plt Count 184 Imagings Data: EXAM DESCRIPTION: RADChest Single View01/04/2023 3:17 pm CLINICAL HISTORY: DYSPNEA COMPARISON: Chest Pa And Lat (2 Views) dated 01/02/2023; Chest Pa And Lat (2 Views) dated 04/13/2016; Chest Pa And Lat (2 Views) dated 04/12/2016; Chest Pa And Lat (2 Views) dated 01/28/2016 TECHNIQUE: Portable AP view of the chest. FINDINGS: The lungs are clear.Stable bibasilar streaky opacities more pronounced on the left, with blunting of the right costophrenic angle, may relate to pleural thickening or scarring. Hyperinflation. No pneumothorax or effusion. The cardiomediastinal contours are unremarkable. IMPRESSION: No acute process. No significant interval change. Conclusions/Impression: Acute Hyponatremia complicated by HCTZ -Continue IVF with NS -Hold HCTZ Hypokalemia in the setting of HCTZ -Replete potassium -Restart Lisinpril Hypomagnesemia -Replete with IV mag Hypophosphatemia -Neutraphos X1 HTN -Restart Lisinopril Thank you kindly for the consultation
[2023-01-04] MEDS ORDERED: POTASS/SODIUM PHOSPHATE 1 PKT POWD.PACK PO ONE (21:58)
[2023-01-04] MEDS ORDERED: POTASSIUM CL SA 10 MEQ TAB PO ONE (21:58)
[2023-01-04] MEDS ORDERED: Magnesium Sulfate 2gm IVPB 2 G/50 ML BAG IV ONE (22:02)
[2023-01-04] MEDS: lisinopriL 5 MG TAB PO SCH (23:43)
[2023-01-04 23:57] LABS: Potassium 3.2 mEq/L (3.5-5.1)
[2023-01-05] MEDS: lisinopriL 5 MG TAB PO SCH ×3 (00:16→21:43)
[2023-01-05 03:41] LABS: Absolute Lymphocytes (CBC) 1.1 K/uL (0.7-4.9); Hematocrit 34.5 % (36.0-45.0); MCV 91.9 fL (80-100); MPV 8.4 fL (7.6-11.3); RBC Red Blood Cell Count 3.76 M/uL (3.86-4.86)
[2023-01-05 04:01] LABS: Potassium 3.2 mEq/L (3.5-5.1)
[2023-01-05] MEDS ORDERED: LABETALOL 20 MG/4ML SYRINGE IV PRN (06:00)
[2023-01-05] MEDS: NA CHLORIDE 0.9% 1,000 ML IV SCH ×2 (06:45→16:00)
[2023-01-05 07:36] LABS: Specific Gravity < 1.005 (1.005-1.030); Urine Bacteria None Seen /HPF (<20); Urine Bilirubin NEGATIVE (Negative); Urine Blood Negative (Negative); Urine Clarity Clear (Clear); Urine Color Colorless (Yellow); Urine Glucose NEGATIVE (Negative); Urine Protein NEGATIVE (Negative); Urine RBC <5 /HPF (None Seen); Urine Urobilinogen Normal (Normal); Urine pH 6.5 (5.0-7.0)
[2023-01-05] MEDS: ENOXAPARIN 40 MG/0.4 ML SQ SCH (08:21)
[2023-01-05] MEDS: ASPIRIN 81 MG CHEWABLE TABLET PO SCH (08:22)
[2023-01-05] MEDS: ALPRAZOLAM 0.25 MG TABLET PO SCH ×3 (08:22→21:43)
[2023-01-05 08:47] LABS: Magnesium 2.3 mg/dL (1.6-2.4); Phosphorus 2.1 mg/dL (2.5-4.9)
[2023-01-05 08:49] LABS: Potassium 3.3 mEq/L (3.5-5.1)
[2023-01-05] MEDS ORDERED: POTASSIUM CL SA 10 MEQ TAB PO ONE ×2 (09:37→20:28)
[2023-01-05] MEDS ORDERED: POTASS/SODIUM PHOSPHATE 1 PKT POWD.PACK PO ONE (09:37)
[2023-01-05 11:37] LABS: Potassium 3.3 mEq/L (3.5-5.1)
--- NOTE | 2023-01-05 12:14 | EKG ---
Test Date: 2023-01-04 Test Time: 17:43:23 Junior Underwriter: VALERIE MEASUREMENT RESULTS: Intervals: Rate: 96 UT: 152 QRSD: 86 QT: 382 QTc: 482 Mcgraw: P: 77 UT: 152 QRS: 60 T: 81 INTERPRETIVE STATEMENTS: Normal sinus rhythm Prolonged QT Abnormal ECG Compared to ECG 01/29/2016 15:54:35 Prolonged QT interval now present Electronically Signed On 01-05-23 12:13:00 CDT by Kike Cuello
--- NOTE | 2023-01-05 14:52 | P.PN ---
Subjective Date of Service: 01/05/23 Chief Complaint: Sore throat, Diarrhea Physical Examination - Vital Signs Temperature: 97.9 F Blood Pressure: 148/75 Pulse: 94 Respirations: 16 Pulse Ox (%): 95 - Studies Laboratory Data (last 24 hrs) 01/04/23 16:12: Sodium 118 L*, Potassium 3.2 L, BUN 7, Creatinine 0.94, Glucose 131 H, Total Bilirubin 0.7, AST 90 H, ALT 76 H, Alkaline Phosphatase 103, Lipase 30 01/04/23 16:12: WBC 3.90 L, Hgb 12.8, Hct 36.3, Plt Count 184 Assessment And Plan - Current Problems (Diagnosis) (1) Acute gastroenteritis Current Visit: No Status: Acute (2) COVID-19 virus infection Current Visit: No Status: Acute (3) Hyponatremia Current Visit: No Status: Acute (4) HTN (hypertension) Current Visit: No Status: Chronic Qualifiers: Hypertension type: essential hypertension Qualified Code(s): I10 - Essential (primary) hypertension - Plan Physical Exam General: Alert, In no apparent distress, Oriented x3, Cooperative Neck: Supple, no elevated JVD. Respiratory: Clear to auscultation bilaterally, Normal air movement Cardiovascular: No edema, Regular rate/rhythm, Normal S1 S2 Gastrointestinal: Normal bowel sounds, Soft and benign, No tenderness Musculoskeletal: No clubbing, No swelling, No tenderness Integumentary: No rashes, No breakdown, No significant lesion Neurological: Normal speech, Normal tone, Normal affect Plan COVID 19 infection/acute gastroenteritis Diarrhea likely secondary to COVID-19 infection. Patient reports significant improvement in diarrhea. Only 1 BM this morning. Continue supportive measures. Diet as tolerated. Hyponatremia Likely secondary to dehydration from diarrhea and poor oral intake. Sodium level has improved. Continue IV normal saline and continue to monitor BMP every 4 hours. Nephrology consulted to assist with management. Monitor and optimize other electrolytes-potassium, phosphate and magnesium. Essential hypertension Holding lisinopril and hydrochlorothiazide given hyponatremia Hydralazine as needed for BP spikes.
[2023-01-05] MEDS ORDERED: ALBUTEROL 2.5 MG/3 ML NEB SOL NEB PRN (15:06)
[2023-01-05 17:38] LABS: Potassium 3.5 mEq/L (3.5-5.1)
[2023-01-05 19:21] LABS: Potassium 3.4 mEq/L (3.5-5.1)
--- NOTE | 2023-01-05 21:39 | P.PN ---
Date of Service: 01/05/23 Vital Signs Temp Pulse Resp BP Pulse Ox 97.1 F 91 H 19 144/74 H 93 01/05/23 20:00 01/05/23 20:00 01/05/23 20:00 01/05/23 20:00 01/05/23 20:00 Medications Acetaminophen (Acetaminophen 325 Mg Tablet) 650 mg PO Q6H PRN PRN Reason: TEMP > 100.4' F Albuterol Sulfate (Albuterol 2.5 Mg/3 Ml Neb Anabela) 2.5 mg NEB TID PRN PRN Reason: SHORTNESS OF BREATH Alprazolam (Alprazolam 0.25 Mg Tablet) 0.25 mg PO BID [facility] Last Admin: 01/05/23 08:22 Dose: Not Given Aspirin (Aspirin 81 Mg Chewable Tablet) 81 mg PO DAILY [facility] Last Admin: 01/05/23 08:22 Dose: Not Given Enoxaparin Sodium (Enoxaparin 40 Mg/0.4 Ml) 40 mg SQ DAILY [facility] Last Admin: 01/05/23 08:21 Dose: 40 mg Sodium Chloride (Ns 1000 Ml Ivbag) 1,000 mls @ 100 mls/hr IV .Q10H [facility] Last Admin: 01/05/23 16:00 Dose: 1,000 mls Labetalol HCl (Labetalol 20 Mg/4ml Syringe) 10 mg IV Q6H PRN PRN Reason: SBP Levothyroxine Sodium (Levothyroxine Sod 0.025 Mg Tab) [facility] Lisinopril (Lisinopril 5 Mg Tab) 5 mg PO BID [facility] Last Admin: 01/05/23 08:22 Dose: 5 mg Ondansetron HCl (Ondansetron 4 Mg/2 Ml Vial) 4 mg IV Q6HP PRN PRN Reason: NAUSEA / VOMITING Last Admin: 01/04/23 23:43 Dose: 4 mg Sodium Chloride (Flush Normal Saline 10 Ml) 10 ml IV BID [facility] Last Admin: 01/05/23 08:22 Dose: 10 ml Throat Lozenges (Chloraseptic Lozenges) 1 delroy MM Q4H PRN PRN Reason: SORE THROAT Assessment/ Plan: Nephrology No dyspnea No chest pain Feeling better No acute events overnight Vitals, medications, blood work and imaging reviewed in the chart. General: Oriented x3, Cooperative HEENT: Atraumatic Neck: Supple Respiratory: Normal air movement Cardiovascular: No edema, Regular rate/rhythm Gastrointestinal: Non-distended, No guarding Musculoskeletal: No clubbing, No contractures Integumentary: No rashes, No cyanosis Neurological: Normal speech Laboratory Data (last 24 hrs) 01/04/23 16:12: Sodium 118 L*, Potassium 3.2 L, BUN 7, Creatinine 0.94, Glucose 131 H, Total Bilirubin 0.7, AST 90 H, ALT 76 H, Alkaline Phosphatase 103, Lipase 30 01/04/23 16:12: WBC 3.90 L, Hgb 12.8, Hct 36.3, Plt Count 184 Imagings Data: EXAM DESCRIPTION: RADChest Single View01/04/2023 3:17 pm CLINICAL HISTORY: DYSPNEA COMPARISON: Chest Pa And Lat (2 Views) dated 01/02/2023; Chest Pa And Lat (2 Views) dated 04/13/2016; Chest Pa And Lat (2 Views) dated 04/12/2016; Chest Pa And Lat (2 Views) dated 01/28/2016 TECHNIQUE: Portable AP view of the chest. FINDINGS: The lungs are clear.Stable bibasilar streaky opacities more pronounced on the left, with blunting of the right costophrenic angle, may relate to pleural thickening or scarring. Hyperinflation. No pneumothorax or effusion. The cardiomediastinal contours are unremarkable. IMPRESSION: No acute process. No significant interval change. Conclusions/Impression: Acute Hyponatremia complicated by HCTZ -Continue IVF with NS -Hold HCTZ Hypokalemia in the setting of HCTZ -Replete potassium -Continue Lisinpril Hypomagnesemia -Replete with IV mag Hypophosphatemia -Neutraphos X1 HTN -Increase Lisinopril
[2023-01-06] MEDS: NA CHLORIDE 0.9% 1,000 ML IV SCH (02:08)
[2023-01-06 04:58] VITALS: O2SAT 96
[2023-01-06 05:40] LABS: Potassium 3.9 mEq/L (3.5-5.1)
[2023-01-06] MEDS: POTASS/SODIUM PHOSPHATE 1 PKT POWD.PACK PO SCH ×3 (06:15→09:00)
[2023-01-06] MEDS ORDERED: LEVOTHYROXINE SOD 0.025 MG TAB PO SCH (06:30)
[2023-01-06] MEDS: ENOXAPARIN 40 MG/0.4 ML SQ SCH (08:17)
[2023-01-06 08:18] VITALS: BP 148/74
[2023-01-06] MEDS: ASPIRIN 81 MG CHEWABLE TABLET PO SCH (08:18)
[2023-01-06] MEDS: ALPRAZOLAM 0.25 MG TABLET PO SCH (08:18)
[2023-01-06 08:34] VITALS: TEMP 97.3
[2023-01-06] MEDS ORDERED: lisinopriL 5 MG TAB PO SCH (09:00)
[2023-01-06] MEDS ORDERED: POTASSIUM CL SA 10 MEQ TAB PO ONE (09:00)
--- NOTE | 2023-01-06 09:08 | P.DS ---
Admission Date: 01/04/23 Discharge Date: 01/06/23 Disposition: ROUTINE DISCHARGE Discharge Condition: FAIR Reason for Admission: Diarrhea in the setting of COVID - Problems (1) Acute gastroenteritis Status: Acute (2) COVID-19 virus infection Status: Acute (3) Hyponatremia Status: Acute (4) HTN (hypertension) Status: Chronic Qualifiers: Hypertension type: essential hypertension Brief History of Present Illness: Patient is a 77-year-old female with a past medical history significant for hypothyroidism, hypertension, hemorrhoids, hemicolectomy who presented with complaint of diarrhea and sore throat. Patient reported diarrhea for 2 weeks. Patient was discharged from the hospital yesterday after being treated for similar symptoms and COVID-19 infection. Patient reported that on getting home, symptoms became worse, and patient was having intermittent shortness of breath. Patient reported associated signs and symptoms of headache, nausea, generalized malaise, restlessness, poor appetite and nasal congestion. Her sodium level in the ED was 118. Patient hospitalized for further management. Hospital Course: Patient admitted to the medical floor and the following medical problems addr essed: COVID 19 infection/acute gastroenteritis Diarrhea likely secondary to COVID-19 infection. Patient reported significant improvement in diarrhea. Only 1 BM yesterday and one this morning, not watery. Symptoms have improved Diet as tolerated. She is deemed stable for discharge. Hyponatremia Likely secondary to dehydration from diarrhea and poor oral intake. Hyponatremia was treated with IV normal saline Nephrology consulted to assist with management. Sodium level improved to 132. Stable Essential hypertension Holding lisinopril and hydrochlorothiazide given hyponatremia. Lisinopril resumed at 5 mg twice daily. Hydrochlorothiazide discontinued due to hyponatremia Vital Signs/Physical Exam: Temp Pulse Resp BP Pulse Ox 97.3 F 80 16 148/74 H 95 01/06/23 08:00 01/06/23 08:17 01/06/23 08:00 01/06/23 08:17 01/06/23 08:00 General: Alert, In no apparent distress, Oriented x3 HEENT: Mucous membr. moist/pink Neck: JVD not distended Respiratory: Clear to auscultation bilaterally, Normal air movement Cardiovascular: No edema, Regular rate/rhythm, Normal S1 S2 Gastrointestinal: Soft and benign, Non-distended Musculoskeletal: No swelling Integumentary: No rashes, No cyanosis Neurological: Normal strength at 5/5 x4 extr Laboratory Data at Discharge: WBC 3.40 thou/uL (4.3-10.9) L 01/05/23 03:20 Hgb 12.1 g/dL (12.0-15.0) 01/05/23 03:20 Hct 34.5 % (36.0-45.0) L 01/05/23 03:20 Plt Count 150 thou/uL (152-406) L 01/05/23 03:20 Sodium 132 mEq/L (136-145) L 01/06/23 05:08 Potassium 3.9 mEq/L (3.5-5.1) D 01/06/23 05:08 BUN 4 mg/dL (7-18) L 01/06/23 05:08 Creatinine 0.65 mg/dL (0.55-1.02) 01/06/23 05:08 Glucose 106 mg/dL (74-106) 01/06/23 05:08 Phosphorus 2.0 mg/dL (2.5-4.9) L 01/06/23 05:08 Magnesium 2.0 mg/dL (1.6-2.4) 01/06/23 05:08 Total Bilirubin 0.7 mg/dL (0.2-1.0) 01/04/23 16:12 AST 90 U/L (15-37) H 01/04/23 16:12 ALT 76 U/L (13-56) H 01/04/23 16:12 Alkaline Phosphatase 103 U/L (45-117) 01/04/23 16:12 Lipase 30 U/L (13-75) 01/04/23 16:12 Home Medications: Albuterol Sulfate [Proair Hfa] 8.5 gm IH TID PRN #1 [id number] 04/13/16 Levothyroxine Sodium [Synthroid] 0.025 mg PO DAILY 01/02/23 lisinopriL [Lisinopril] 10 mg PO BID #60 tab 01/06/23 New Medications: lisinopriL [Lisinopril] 10 mg PO BID #60 tab Followup: Luciana Costa DO [Primary Care Provider] - Time spent managing pt's care (in minutes): 33
== END 2023-01-06 11:43 | disposition home or self-care (01) | DRG 178 ==
LOC: ER 14:35 → ERHOLD 18:01 → 4TH 21:48
PROVIDERS: ADMIT Internal Medicine; ATTEND Internal Medicine
DX: U07.1 COVID-19 (principal); E87.1 Hypo-osmolality and hyponatremia; N17.9 Acute kidney failure, unspecified; E03.9 Hypothyroidism, unspecified; E87.6 Hypokalemia; E83.42 Hypomagnesemia; E86.0 Dehydration; F41.9 Anxiety disorder, unspecified; D63.8 Anemia in other chronic diseases classified elsewhere; E83.39 Other disorders of phosphorus metabolism; I10 Essential (primary) hypertension; Z88.6 Allergy status to analgesic agent; Z88.8 Allergy status to other drugs, medicaments and biological substances; Z90.49 Acquired absence of other specified parts of digestive tract; Z79.890 Hormone replacement therapy; Z28.310 Unvaccinated for COVID-19; Z79.899 Other long term (current) drug therapy; Z90.710 Acquired absence of both cervix and uterus; Z20.822 Contact with and (suspected) exposure to COVID-19
CPT/HCPCS: 36415; 71045; 80048; 80053; 81001; 82550; 83690; 83735; 83930; 83935; 84100; 84132; 84295; 84300; 84439; 84443; 85025; 87045; 87046; 87811; 93005; 96360; 96361; 99285; J1650; J2405; J3475; J7030

== ENCOUNTER 2024-04-23 22:07 | Emergency (ER) | payer OTHER ==
--- OUTSIDE RECORDS SUMMARY | 2024-04-23 22:10 | XMS REPORT | Continuity of Care Document ---
Author Name Unknown Address [address] [facility] [address] [place] [address] [facility] Address [address] [facility] [address] [place] [address] Care Team Providers Care Manager Web Application Name Role Phone Perry Lares Attending Clinician Unavailable Lisa Eduardo Attending Clinician Unavailable Luciana Costa Attending Clinician Unavailable Juan Francisco James Attending Clinician Unavailable Jeanine Quintana Attending Clinician Unavailable Payers Payer Name Policy Type Policy Number Effective Date Expirati on Date Source Cig-HealthSpr ing Medicare Replace C1 [id number] [facility] Medicare Replace C1 [id number] [facility] C1 [id number] [facility] Problems Condition Name Condition Details Condition Category Status Onset Date Resolution Date Last Treatment Date Treating Clinician Comments Source [id number] BMI 32.0-32.9, adult Problem [facility] [id number] Other obesity due to excess calories Problem [facility] Essential hypertensi on Essential (primary) hypertensi on Problem [facility] Serum TSH level abnormal Abnormal TSH Problem [facility] [id number] Abnormal chest x-ray Problem [facility] [id number] Kyphosis of thoracolum bar region, unspecifie d kyphosis type Problem [facility] [id number] [employer] [place] allergies Problem [facility] [id number] Hyperglyce param Problem [facility] [id number] Bilateral hearing loss, unspecifie d hearing loss type Problem [facility] [id number] History of right hemicolect geoff Problem [facility] [id number] Age-relate d osteoporos is without current pathologic al fracture Problem [facility] [id number] Acquired hypothyroi dism Problem [facility] [id number] Obesity (BMI 30.0-34.9) Problem [facility] Pure hyperchole sterolemia Hyperchole steremia Problem [facility] [id number] History of colonic polyps Problem [facility] Allergies, Adverse Reactions, Alerts Allergy Name Allergy Type Status Severity Reaction(s) Onset Date Inactive Date Treating Clinician Comments Source aspirin aspirin Active Unknown [facility] Benzodia zepines Benzodia zepines Active Unknown [facility] Social History Social Habit Start Date Stop Date Quantity Comments Source History of Tobacco Use [facility] Sex Assigned At [facility] Smoking Status Start Date Stop Date Source Former Smoker 2024-03-19 00:00:00 2024-03-19 00:00:00 [facility] Medications Ordered Medication Name Filled Medication Name Start Date Stop Date Current Medication? Ordering Clinician Indication Dosage Frequency Signature (SIG) Comments Components Source amLODIPine Besylate 2.5 MG amLODIPine Besylate 2.5 MG No 1{table t} amLODIPine Besylate 2.5 MG Levothyroxi ne Sodium 25 MCG Levothyroxi ne Sodium 25 MCG No QD Levothyrox ine Sodium 25 MCG Lisinopril- hydroCHLORO thiazide 10-12.5 MG Lisinopril- hydroCHLORO thiazide 10-12.5 MG No 1{table t} QD Lisinopril -hydroCHLO ROthiazide 10-12.5 MG Multivitami n Multivitami n No 1{table t} QD Multivitam in Immune Support - Immune Support - No Immune Support - Claritin 10 MG Claritin 10 MG No 1{table t} QD Claritin 10 MG Calcium + D 500-1000-40 MG-UNT-MCG Calcium + D 500-1000-40 MG-UNT-MCG No 1{table t} QD Calcium + D 500-1000-4 0 MG-UNT-MCG Vitamin C 500 MG Vitamin C 500 MG No Vitamin C 500 MG Immunizations Ordered Immunization Name Filled Immunization Name Date Status Comments Source FLUZONE HIGH DOSE OVER 65 FLUZONE HIGH DOSE OVER 65 2022-08-11 14:58:00 Completed [facility] FLUZONE HIGH DOSE OVER 65 FLUZONE HIGH DOSE OVER 65 2022-08-11 14:58:00 Completed [facility] FLUZONE HIGH DOSE OVER 65 FLUZONE HIGH DOSE OVER 65 2022-08-11 14:58:00 Completed [facility] FLUZONE HIGH DOSE OVER 65 FLUZONE HIGH DOSE OVER 65 2022-08-11 14:58:00 Completed [facility] FLUZONE HIGH DOSE OVER 65 FLUZONE HIGH DOSE OVER 65 2022-08-11 14:58:00 Completed [facility] FluAD FluAD 2021-08-23 09:07:00 Completed [facility] FluAD FluAD 2021-08-23 09:07:00 Completed [facility] FluAD FluAD 2021-08-23 09:07:00 Completed [facility] FluAD FluAD 2021-08-23 09:07:00 Completed [facility] FluAD FluAD 2021-08-23 09:07:00 Completed [facility] FluAD FluAD 2021-08-23 09:07:00 Completed [facility] FluAD FluAD 2021-08-23 09:07:00 Completed [facility] FluAD FluAD 2021-08-23 09:07:00 Completed [facility] FluAD FluAD 2021-08-23 09:07:00 Completed [facility] FLUZONE HIGH DOSE OVER 65 FLUZONE HIGH DOSE OVER 65 2020-07-09 15:44:00 Completed [facility] FLUZONE HIGH DOSE OVER 65 FLUZONE HIGH DOSE OVER 65 2020-07-09 15:44:00 Completed [facility] FLUZONE HIGH DOSE OVER 65 FLUZONE HIGH DOSE OVER 65 2020-07-09 15:44:00 Completed [facility] FLUZONE HIGH DOSE OVER 65 FLUZONE HIGH DOSE OVER 65 2020-07-09 15:44:00 Completed [facility] FLUZONE HIGH DOSE OVER 65 FLUZONE HIGH DOSE OVER 65 2020-07-09 15:44:00 Completed [facility] FLUZONE HIGH DOSE OVER 65 FLUZONE HIGH DOSE OVER 65 2020-07-09 15:44:00 Completed [facility] FLUZONE HIGH DOSE OVER 65 FLUZONE HIGH DOSE OVER 65 2020-07-09 15:44:00 Completed [facility] FLUZONE HIGH DOSE OVER 65 FLUZONE HIGH DOSE OVER 65 2020-07-09 15:44:00 Completed [facility] FLUZONE HIGH DOSE OVER 65 FLUZONE HIGH DOSE OVER 65 2020-07-09 15:44:00 Completed [facility] FLUZONE HIGH DOSE OVER 65 FLUZONE HIGH DOSE OVER 65 2020-07-09 15:44:00 Completed [facility] FLUZONE HIGH DOSE OVER 65 FLUZONE HIGH DOSE OVER 65 2020-07-09 15:44:00 Completed [facility] FLUZONE HIGH DOSE OVER 65 FLUZONE HIGH DOSE OVER 65 2020-07-09 15:44:00 Completed [facility] Fluzone Fluzone 2018-07-25 10:29:00 Completed [facility] Fluzone Fluzone 2018-07-25 10:29:00 Completed [facility] Fluzone Fluzone 2018-07-25 10:29:00 Completed [facility] Fluzone Fluzone 2018-07-25 10:29:00 Completed [facility] Fluzone Fluzone 2018-07-25 10:29:00 Completed [facility] Fluzone Fluzone 2018-07-25 10:29:00 Completed [facility] Fluzone Fluzone 2018-07-25 10:29:00 Completed [facility] Fluzone Fluzone 2018-07-25 10:29:00 Completed [facility] Fluzone Fluzone 2018-07-25 10:29:00 Completed [facility] Fluzone Fluzone 2018-07-25 10:29:00 Completed [facility] Fluzone Fluzone 2018-07-25 10:29:00 Completed [facility] Fluzone Fluzone 2018-07-25 10:29:00 Completed [facility] FluAD Quad SD FluAD Quad SD Unknown Completed [facility] FluAD FluAD Unknown Completed [facility] Fluzone Fluzone Unknown Completed [facility] FLUZONE HIGH DOSE OVER 65 FLUZONE HIGH DOSE OVER 65 Unknown Completed [facility] FLUZONE HIGH DOSE OVER 65 FLUZONE HIGH DOSE OVER 65 Unknown Completed [facility] FluAD Quad SD FluAD Quad SD Unknown Completed [facility] FluAD FluAD Unknown Completed [facility] Fluzone Fluzone Unknown Completed [facility] FLUZONE HIGH DOSE OVER 65 FLUZONE HIGH DOSE OVER 65 Unknown Completed [facility] FLUZONE HIGH DOSE OVER 65 FLUZONE HIGH DOSE OVER 65 Unknown Completed [facility] FluAD Quad SD FluAD Quad SD Unknown Completed [facility] FluAD FluAD Unknown Completed [facility] Fluzone Fluzone Unknown Completed [facility] FLUZONE HIGH DOSE OVER 65 FLUZONE HIGH DOSE OVER 65 Unknown Completed [facility] FLUZONE HIGH DOSE OVER 65 FLUZONE HIGH DOSE OVER 65 Unknown Completed [facility] FluAD Quad SD FluAD Quad SD Unknown Completed [facility] FluAD FluAD Unknown Completed [facility] Fluzone Fluzone Unknown Completed [facility] FLUZONE HIGH DOSE OVER 65 FLUZONE HIGH DOSE OVER 65 Unknown Completed [facility] FLUZONE HIGH DOSE OVER 65 FLUZONE HIGH DOSE OVER 65 Unknown Completed [facility] FluAD Quad SD FluAD Quad SD Unknown Completed [facility] FluAD FluAD Unknown Completed [facility] Fluzone Fluzone Unknown Completed [facility] FLUZONE HIGH DOSE OVER 65 FLUZONE HIGH DOSE OVER 65 Unknown Completed [facility] FLUZONE HIGH DOSE OVER 65 FLUZONE HIGH DOSE OVER 65 Unknown Completed [facility] Fluad (aIIV4) - SDS - 0.5mL Fluad (aIIV4) - SDS - 0.5mL Unknown Completed [facility] FluAD FluAD Unknown Completed [facility] Fluzone Fluzone Unknown Completed [facility] FLUZONE HIGH DOSE OVER 65 FLUZONE HIGH DOSE OVER 65 Unknown Completed [facility] FLUZONE HIGH DOSE OVER 65 FLUZONE HIGH DOSE OVER 65 Unknown Completed [facility] Fluad (aIIV4) - SDS - 0.5mL Fluad (aIIV4) - SDS - 0.5mL Unknown Completed [facility] FluAD FluAD Unknown Completed [facility] Fluzone Fluzone Unknown Completed [facility] FLUZONE HIGH DOSE OVER 65 FLUZONE HIGH DOSE OVER 65 Unknown Completed [facility] FLUZONE HIGH DOSE OVER 65 FLUZONE HIGH DOSE OVER 65 Unknown Completed [facility] Fluad (aIIV4) - SDS - 0.5mL Fluad (aIIV4) - SDS - 0.5mL Unknown Completed [facility] FluAD FluAD Unknown Completed [facility] Fluzone Fluzone Unknown Completed [facility] FLUZONE HIGH DOSE OVER 65 FLUZONE HIGH DOSE OVER 65 Unknown Completed [facility] FLUZONE HIGH DOSE OVER 65 FLUZONE HIGH DOSE OVER 65 Unknown Completed [facility] Fluad (aIIV4) - SDS - 0.5mL Fluad (aIIV4) - SDS - 0.5mL Unknown Completed [facility] FluAD FluAD Unknown Completed [facility] Fluzone Fluzone Unknown Completed [facility] FLUZONE HIGH DOSE OVER 65 FLUZONE HIGH DOSE OVER 65 Unknown Completed [facility] FLUZONE HIGH DOSE OVER 65 FLUZONE HIGH DOSE OVER 65 Unknown Completed [facility] Fluad (aIIV4) - SDS - 0.5mL Fluad (aIIV4) - SDS - 0.5mL Unknown Completed [facility] FluAD FluAD Unknown Completed [facility] Fluzone Fluzone Unknown Completed [facility] FLUZONE HIGH DOSE OVER 65 FLUZONE HIGH DOSE OVER 65 Unknown Completed [facility] FLUZONE HIGH DOSE OVER 65 FLUZONE HIGH DOSE OVER 65 Unknown Completed [facility] Vital Signs Vital Name Observation Time Observation Value Comments S ource height 2024-03-26 10:00:00 60.50 [in_i] Com [facility] weight 2024-03-26 10:00:00 161 [lb_av] Comm on [facility] temperature 2024-03-26 10:00:00 97.4 [degF] Com [facility] bmi 2024-03-26 10:00:00 30.92 kg/m2 Comm on [facility] oximetry 2024-03-26 10:00:00 96 % Commo n [facility] blood pressure systolic 2024-03-26 10:00:00 136 mm[Hg] Common [facility] blood pressure diastolic 2024-03-26 10:00:00 78 mm[Hg] Common [facility] height 2023-11-21 08:30:00 60.50 [in_i] Com [facility] weight 2023-11-21 08:30:00 166 [lb_av] Comm on [facility] temperature 2023-11-21 08:30:00 98.3 [degF] Com [facility] bmi 2023-11-21 08:30:00 31.88 kg/m2 Comm on [facility] oximetry 2023-11-21 08:30:00 95 % Commo n [facility] blood pressure systolic 2023-11-21 08:30:00 138 mm[Hg] Common [facility] blood pressure diastolic 2023-11-21 08:30:00 80 mm[Hg] [facility] height 2023-07-20 09:20:00 60.50 [in_i] Com [facility] weight 2023-07-20 09:20:00 164.2 [lb_av] [facility] 2023-07-20 09:20:00 97.8 [degF] Com [facility] bmi 2023-07-20 09:20:00 31.54 kg/m2 Comm on [facility] oximetry 2023-07-20 09:20:00 98 % Commo n [facility] respiratory rate 2023-07-20 09:20:00 18 /min Common [facility] blood pressure systolic 2023-07-20 09:20:00 132 mm[Hg] Common [facility] blood pressure diastolic 2023-07-20 09:20:00 77 mm[Hg] [facility] height 2023-07-20 09:20:00 60.50 [in_i] Com [facility] weight 2023-07-20 09:20:00 164.2 [lb_av] Co [facility] temperature 2023-07-20 09:20:00 97.8 [degF] Com [facility] bmi 2023-07-20 09:20:00 31.54 kg/m2 Comm on [facility] oximetry 2023-07-20 09:20:00 98 % Commo n [facility] respiratory rate 2023-07-20 09:20:00 18 /min [facility] blood pressure systolic 2023-07-20 09:20:00 132 mm[Hg] [facility] blood pressure diastolic 2023-07-20 09:20:00 77 mm[Hg] [facility] height 2023-03-22 10:00:00 60.50 [in_i] Com [facility] weight 2023-03-22 10:00:00 160.0 [lb_av] Co [facility] temperature 2023-03-22 10:00:00 98.1 [degF] Com [facility] bmi 2023-03-22 10:00:00 30.73 kg/m2 Comm on [facility] oximetry 2023-03-22 10:00:00 95 % Commo n [facility] respiratory rate 2023-03-22 10:00:00 17 /min Common [facility] blood pressure systolic 2023-03-22 10:00:00 140 mm[Hg] Common [facility] blood pressure diastolic 2023-03-22 10:00:00 78 mm[Hg] [facility] height 2022-09-16 09:00:00 60.50 [in_i] Com [facility] weight 2022-09-16 09:00:00 163.8 [lb_av] [facility] 2022-09-16 09:00:00 97.6 [degF] Com [facility] bmi 2022-09-16 09:00:00 31.46 kg/m2 Comm on [facility] oximetry 2022-09-16 09:00:00 96 % Commo n [facility] respiratory rate 2022-09-16 09:00:00 18 /min Common [facility] blood pressure systolic 2022-09-16 09:00:00 136 mm[Hg] [facility] blood pressure diastolic 2022-09-16 09:00:00 72 mm[Hg] [facility] height 2022-08-11 13:40:00 60.50 [in_i] Com [facility] weight 2022-08-11 13:40:00 165 [lb_av] Comm on [facility] temperature 2022-08-11 13:40:00 97.2 [degF] Com [facility] bmi 2022-08-11 13:40:00 31.69 kg/m2 Comm on [facility] oximetry 2022-08-11 13:40:00 93 % Commo n [facility] respiratory rate 2022-08-11 13:40:00 20 /min [facility] blood pressure systolic 2022-08-11 13:40:00 142 mm[Hg] [facility] blood pressure diastolic 2022-08-11 13:40:00 96 mm[Hg] [facility] height 2022-08-11 13:00:00 60.50 [in_i] Com [facility] weight 2022-08-11 13:00:00 165 [lb_av] Comm on [facility] temperature 2022-08-11 13:00:00 97.2 [degF] Com [facility] bmi 2022-08-11 13:00:00 31.69 kg/m2 Comm on [facility] oximetry 2022-08-11 13:00:00 93 % Commo n [facility] respiratory rate 2022-08-11 13:00:00 20 /min Common [facility] blood pressure systolic 2022-08-11 13:00:00 176 mm[Hg] Common [facility] blood pressure diastolic 2022-08-11 13:00:00 94 mm[Hg] Common [facility] height 2022-02-07 11:00:00 60.50 [in_i] Com [facility] weight 2022-02-07 11:00:00 164.2 [lb_av] Co mmon [facility] temperature 2022-02-07 11:00:00 98.0 [degF] Com [facility] bmi 2022-02-07 11:00:00 31.54 kg/m2 Comm on [facility] oximetry 2022-02-07 11:00:00 95 % Commo n [facility] respiratory rate 2022-02-07 11:00:00 16 /min [facility] blood pressure systolic 2022-02-07 11:00:00 135 mm[Hg] Common [facility] blood pressure diastolic 2022-02-07 11:00:00 77 mm[Hg] Common [facility] height 2021-10-26 11:20:00 60.50 [in_i] Com [facility] weight 2021-10-26 11:20:00 161 [lb_av] Comm on [facility] bmi 2021-10-26 11:20:00 30.92 kg/m2 Comm on [facility] height 2021-07-23 11:40:00 60.50 [in_i] Com [facility] weight 2021-07-23 11:40:00 161 [lb_av] Comm on [facility] temperature 2021-07-23 11:40:00 97.8 [degF] Com [facility] bmi 2021-07-23 11:40:00 30.92 kg/m2 Comm on [facility] oximetry 2021-07-23 11:40:00 95 % Commo n [facility] respiratory rate 2021-07-23 11:40:00 20 /min [facility] blood pressure systolic 2021-07-23 11:40:00 128 mm[Hg] [facility] blood pressure diastolic 2021-07-23 11:40:00 70 mm[Hg] [facility] height 2021-04-23 11:40:00 60.50 [in_i] Com [facility] weight 2021-04-23 11:40:00 154.8 [lb_av] Co mmon [facility] temperature 2021-04-23 11:40:00 97.4 [degF] Com [facility] bmi 2021-04-23 11:40:00 29.73 kg/m2 Comm on [facility] oximetry 2021-04-23 11:40:00 96 % Commo n [facility] respiratory rate 2021-04-23 11:40:00 18 /min [facility] blood pressure systolic 2021-04-23 11:40:00 148 mm[Hg] [facility] blood pressure diastolic 2021-04-23 11:40:00 92 mm[Hg] [facility] Encounters Start Date/Time End Date/Time Encounter Type Admission Type Attending [facility] Care Facility Care Department Encounter ID Source 2023-03-22 10:07:00 Outpatient Perry Lares [facility] [id number] [facility] 2023-03-21 10:54:00 [facility] [id number] [facility] 2023-03-06 08:55:01 Outpatient Perry Lares [facility] [id number] [facility] 2022-12-19 16:38:00 Outpatient Lisa Eduardo [facility] [id number] [facility] 2022-09-01 16:11:01 Outpatient Luciana Costa [facility] [id number] [facility] 2022-08-09 15:10:01 Outpatient Luciana Costa [facility] [id number] [facility] 2022-02-07 10:55:01 Outpatient Luciana Costa [facility] [id number] [facility] 2021-11-10 14:39:13 Outpatient Luciana Costa [facility] [id number] [facility] 2021-11-10 14:32:18 Outpatient Luciana Costa [facility] [id number] [facility] 2021-11-10 13:57:22 Outpatient Luciana Costa [facility] [id number] [facility] 2021-11-10 13:22:51 Outpatient Luciana Costa [facility] [id number] [facility] 2021-11-10 12:44:11 Outpatient Luciana Costa [facility] [id number] [facility] 2021-11-10 12:23:12 Outpatient [facility] [id number] [facility] 2021-11-10 12:08:17 Outpatient Juan Francisco James [facility] [id number] [facility] 2021-11-10 11:48:28 Outpatient Jeanine Quintana [facility] [id number] [facility] 2021-11-10 11:13:29 Outpatient Jeanine Quintana [facility] [id number] [facility] 2021-11-10 11:07:08 Outpatient Jeanine Quintana [facility] [id number] [facility] 2021-11-10 11:01:34 Outpatient Jeanine Quintana [facility] [id number] [facility] 2024-03-26 00:00:00 2024-03-26 00:00:00 OFFICE VISIT ESTAB PT LEVEL 4 [facility] [id number] [facility] 2023-11-21 00:00:00 2023-11-21 00:00:00 OFFICE VISIT ESTAB PT LEVEL 4 [facility] [id number] [facility] 2023-10-03 00:00:00 2023-10-03 00:00:00 (TEL) [facility] [id number] [facility] 2023-07-20 00:00:00 2023-07-20 00:00:00 OFFICE VISIT ESTAB PT LEVEL 3 [facility] [id number] [facility] 2023-07-20 00:00:00 2023-07-20 00:00:00 SUB ANNUAL [facility] VISIT [facility] [id number] [facility] 2023-03-22 00:00:00 2023-03-22 00:00:00 OFFICE VISIT ESTAB PT LEVEL 4 [facility] [id number] [facility] 2023-03-06 00:00:00 2023-03-06 00:00:00 (TEL) [facility] [id number] [facility] 2023-01-13 00:00:00 2023-01-13 00:00:00 (TEL) [facility] [id number] [facility] 2022-12-20 00:00:00 2022-12-20 00:00:00 (TEL) [facility] [id number] [facility] 2022-12-19 00:00:00 2022-12-19 00:00:00 (TEL) [facility] [id number] [facility] 2022-09-16 00:00:00 2022-09-16 00:00:00 OFFICE VISIT EST PT LEVEL 3 [facility] [id number] [facility] 2022-08-24 00:00:00 2022-08-24 00:00:00 (TEL) [facility] [id number] [facility] 2022-08-11 00:00:00 2022-08-11 00:00:00 SUB ANNUAL [facility] VISIT [facility] [id number] [facility] 2022-08-11 00:00:00 2022-08-11 00:00:00 OFFICE VISIT EST PT LEVEL 3 [facility] [id number] [facility] 2022-04-07 00:00:00 2022-04-07 00:00:00 (TEL) [facility] [id number] [facility] 2022-02-07 00:00:00 2022-02-07 00:00:00 OFFICE VISIT ESTAB PT LEVEL 4 [facility] [id number] [facility] 2021-10-26 00:00:00 2021-10-26 00:00:00 OL DIG E/M SVC 11-20 MIN [facility] [id number] [facility] 2021-10-06 00:00:00 2021-10-06 00:00:00 (TEL) [facility] [id number] [facility] 2021-08-23 00:00:00 2021-08-23 00:00:00 (INJ) Injection [facility] [id number] [facility] 2021-07-23 00:00:00 2021-07-23 00:00:00 OFFICE VISIT EST PT LEVEL 3 [facility] [id number] [facility] 2021-05-06 00:00:00 2021-05-06 00:00:00 (TEL) [facility] [id number] [facility] 2021-04-23 00:00:00 2021-04-23 00:00:00 OFFICE VISIT ESTAB PT LEVEL 4 [facility] [id number] [facility] 2021-01-20 00:00:00 2021-01-20 00:00:00 Outpatient [facility] [id number] [facility] 2021-01-07 00:00:00 2021-01-07 00:00:00 Outpatient [facility] [id number] [facility] 2021-01-07 00:00:00 2021-01-07 00:00:00 Outpatient [facility] [id number] [facility] 2020-11-04 00:00:00 2020-11-04 00:00:00 Outpatient [facility] [id number] [facility] 2020-07-09 00:00:00 2020-07-09 00:00:00 Outpatient [facility] [id number] [facility] 2020-01-01 14:36:00 2020-01-01 14:36:00 Outpatient [facility] [id number] [facility] 2019-12-30 09:30:00 2019-12-30 09:30:00 [facility] [id number] [facility] 2019-11-27 11:15:00 2019-11-27 11:15:00 [facility] [id number] [facility] 2019-11-11 20:20:00 2019-11-11 20:20:00 Outpatient [facility] [id number] [facility] 2019-11-03 17:42:00 2019-11-03 17:42:00 Outpatient [facility] [id number] [facility] 2019-11-01 15:45:00 2019-11-01 15:45:00 Outpatient [facility] [id number] [facility] Results Test Description Test Time Test Comments Results Result Co mments Source TSH REFLEX TO FREE [id number] 00:00:00* Test Item Value Reference Range Interpretation Comme nts TSH REFLEX TO FREE T4 (test code = 29233-5) 3.990 UIU/ML See_Comment [Automated [employer] ge] The system which generated this result transmitted reference range: 0.400-4.100 UIU/ML. The reference range was not used to interpret this result as normal/abnormal. URINALYSIS (CULTURE IF INDICATED)2023-07-13 00:00:00* Test Item Value Reference Range Interpretation Comme nts APPEARANCE (test code = 5767-9) CLOUDY CLEAR A BACTERIA (test code = 08087-5) >3+ NONE SEEN BILIRUBIN (test code = 5770-3) NEGATIVE NEGATIVE CASTS, HYALINE (test code = 66464-4) NONE SEEN NONE-TRACE COLOR (test code = 5778-6) YELLOW YELLOW-STRAW EPITHELIAL CELLS (test code = 59096-3) 0-5 /HPF See_Comment [Automated [employer] ge] The system which generated this result transmitted reference range: 0-10 /HPF. The reference range was not used to interpret this result as normal/abnormal. GLUCOSE (test code = 5792-7) NEGATIVE NEGATIVE KETONES (test code = 5797-6) NEGATIVE NEGATIVE LEUKOCYTE ESTERASE (test code = 5799-2) NEGATIVE NEGATIVE NITRITE (test code = 5802-4) POSITIVE NEGATIVE A OCCULT BLOOD (test code = 60871-2) NEGATIVE NEGATIVE pH (test code = 5803-2) 7.5 5.0-9.0 PROTEIN (test code = 22911-2) NEGATIVE NEGATIVE RED BLOOD CELLS (test code = 45178-1) 0-2 /HPF See_Comment [Automated messa ge] The system which generated this result transmitted reference range: 0-2 /HPF. The reference range was not used to interpret this result as normal/abnormal. SPECIFIC GRAVITY (test code = 5811-5) 1.017 1.005-1.035 UROBILINOGEN (test code = 34294-5) 0.2 MG/DL See_Comment [Automated messa ge] The system which generated this result transmitted reference range: <=2.0 MG/DL. The reference range was not used to interpret this result as normal/abnormal. WHITE BLOOD CELLS (test code = 69124-0) 6-10 /HPF See_Comment A [Automated messa ge] The system which generated this result transmitted reference range: 0-5 /HPF. The reference range was not used to interpret this result as normal/abnormal. LIPID PANEL WITH REFLEX DIRECT [id number] 00:00:00* Test Item Value Reference Range Interpretation Comme nts CALC LDL CHOL (test code = 55540-2) 106 MG/DL See_Comment H [Automated messa ge] The system which generated this result transmitted reference range: <100 MG/DL. The reference range was not used to interpret this result as normal/abnormal. CHOLESTEROL (test code = 2093-3) 209 MG/DL See_Comment H [Automated messa ge] The system which generated this result transmitted reference range: <200 MG/DL. The reference range was not used to interpret this result as normal/abnormal. HDL CHOLESTEROL (test code = 2085-9) 81 MG/DL See_Comment [Automated messa ge] The system which generated this result transmitted reference range: >39 MG/DL. The reference range was not used to interpret this result as normal/abnormal. RISK RATIO LDL/HDL (test code = 35927-2) 1.31 RATIO See_Comment [Automated message] The system which generated this result transmitted reference range: <3.22 RATIO. The reference range was not used to interpret this result as normal/abnormal. TRIGLYCERIDES (test code = 2571-8) 119 MG/DL See_Comment [Automated messa ge] The system which generated this result transmitted reference range: <150 MG/DL. The reference range was not used to interpret this result as normal/abnormal. COMPREHENSIVE METABOLIC [id number] 00:00:00* Test Item Value Reference Range Interpretation Comme nts ALBUMIN (test code = 1751-7) 4.1 G/DL See_Comment [Automated messa ge] The system which generated this result transmitted reference range: 3.5-5.2 G/DL. The reference range was not used to interpret this result as normal/abnormal. ALKALINE PHOSPHATASE (test code = 6768-6) 91 U/L See_Comment [Automated message] The system which generated this result transmitted reference range: 40-142 U/L. The reference range was not used to interpret this result as normal/abnormal. BILIRUBIN, TOTAL (test code = 1975-2) 0.4 MG/DL See_Comment [Automated message] The system which generated this result transmitted reference range: <=1.2 MG/DL. The reference range was not used to interpret this result as normal/abnormal. BUN (test code = 3094-0) 14 MG/DL See_Comment [Automated messa ge] The system which generated this result transmitted reference range: 8-23 MG/DL. The reference range was not used to interpret this result as normal/abnormal. CALCIUM (test code = 22761-8) 9.7 MG/DL See_Comment [Automated messa ge] The system which generated this result transmitted reference range: 8.5-10.5 MG/DL. The reference range was not used to interpret this result as normal/abnormal. CALC A/G RATIO (test code = 1759-0) 1.5 RATIO See_Comment [Automated messa ge] The system which generated this result transmitted reference range: 1.0-2.6 RATIO. The reference range was not used to interpret this result as normal/abnormal. CALC BUN/CREAT (test code = 3097-3) 16 RATIO See_Comment [Automated messa ge] The system which generated this result transmitted reference range: 6-28 RATIO. The reference range was not used to interpret this result as normal/abnormal. CALC GLOBULIN (test code = 60438-6) 2.8 G/DL See_Comment [Automated messa ge] The system which generated this result transmitted reference range: 1.9-3.7 G/DL. The reference range was not used to interpret this result as normal/abnormal. CARBON DIOXIDE (test code = 1963-8) 32 MEQ/L See_Comment H [Automated messa ge] The system which generated this result transmitted reference range: 19-31 MEQ/L. The reference range was not used to interpret this result as normal/abnormal. CHLORIDE (test code = 2075-0) 96 MEQ/L See_Comment [Automated messa ge] The system which generated this result transmitted reference range: 95-107 MEQ/L. The reference range was not used to interpret this result as normal/abnormal. CREATININE (test code = 2160-0) 0.85 MG/DL See_Comment [Automated messa ge] The system which generated this result transmitted reference range: 0.60-1.30 MG/DL. The reference range was not used to interpret this result as normal/abnormal. eGFR (2020 CKD-EPI) (test code = 88940-5) 70 ML/MIN/1.73 See_Comment [Automated messa ge] The system which generated this result transmitted reference range: >60 ML/MIN/1.73. The reference range was not used to interpret this result as normal/abnormal. GLUCOSE (test code = 1558-6) 104 MG/DL See_Comment H [Automated messa ge] The system which generated this result transmitted reference range: 70-99 MG/DL. The reference range was not used to interpret this result as normal/abnormal. POTASSIUM (test code = 2823-3) 3.8 MEQ/L See_Comment [Automated messa ge] The system which generated this result transmitted reference range: 3.5-5.4 MEQ/L. The reference range was not used to interpret this result as normal/abnormal. PROTEIN, TOTAL (test code = 2885-2) 6.9 G/DL See_Comment [Automated messa ge] The system which generated this result transmitted reference range: 6.1-8.3 G/DL. The reference range was not used to interpret this result as normal/abnormal. AST (test code = 1920-8) 18 U/L See_Comment [Automated messa ge] The system which generated this result transmitted reference range: 9-40 U/L. The reference range was not used to interpret this result as normal/abnormal. ALT (test code = 1742-6) 14 U/L See_Comment [Automated messa ge] The system which generated this result transmitted reference range: 5-40 U/L. The reference range was not used to interpret this result as normal/abnormal. SODIUM (test code = 2951-2) 138 MEQ/L See_Comment [Automated messa ge] The system which generated this result transmitted reference range: 133-146 MEQ/L. The reference range was not used to interpret this result as normal/abnormal. Lipid Panel With LDL/HDL [id number] 00:00:00* Test Item Value Reference Range Interpretation Comme [facility] Cholesterol, Total (test code = 2093-3) 208 mg/dL See_Comment H [Automated message] The system which generated this result transmitted reference range: 100-199 mg/dL. The reference range was not used to interpret this result as normal/abnormal. HDL Cholesterol (test code = 2085-9) 74 mg/dL See_Comment [Automated [employer]] The system which generated this result transmitted reference range: >39 mg/dL. The reference range was not used to interpret this result as normal/abnormal. Triglycerides (test code = 2571-8) 136 mg/dL See_Comment [Automated [employer]] The system which generated this result transmitted reference range: 0-149 mg/dL. The reference range was not used to interpret this result as normal/abnormal. Hemoglobin [id number] 00:00:00* Test Item Value Reference Range Interpretation Comme [facility] Hemoglobin A1c (test code = 4548-4) 5.1 % See_Comment [Automated [employer]] The system which generated this result transmitted reference range: 4.8-5.6 %. The reference range was not used to interpret this result as normal/abnormal. Comp. Metabolic Panel (14) ([facility])2023-03-07 00:00:00* Test Item Value Reference Range Interpretation Comme [facility] A/G Ratio (test code = 1759-0) 1.4 1.2-2.2 Albumin (test code = 1751-7) 3.9 g/dL See_Comment [Automated [employer]] The system which generated this result transmitted reference range: 3.7-4.7 g/dL. The reference range was not used to interpret this result as normal/abnormal. Alkaline Phosphatase (test code = 6768-6) 82 IU/L See_Comment [Automated message] The system which generated this result transmitted reference range: 44-121 IU/L. The reference range was not used to interpret this result as normal/abnormal. ALT (SGPT) (test code = 1742-6) 14 IU/L See_Comment [Automated [employer] ge] The system which generated this result transmitted reference range: 0-32 IU/L. The reference range was not used to interpret this result as normal/abnormal. AST (SGOT) (test code = 1920-8) 18 IU/L See_Comment [Automated messa ge] The system which generated this result transmitted reference range: 0-40 IU/L. The reference range was not used to interpret this result as normal/abnormal. Bilirubin, Total (test code = 1975-2) 0.3 mg/dL See_Comment [Automated messa ge] The system which generated this result transmitted reference range: 0.0-1.2 mg/dL. The reference range was not used to interpret this result as normal/abnormal. BUN (test code = 3094-0) 12 mg/dL See_Comment [Automated messa ge] The system which generated this result transmitted reference range: 8-27 mg/dL. The reference range was not used to interpret this result as normal/abnormal. BUN/Creatinine Ratio (test code = 3097-3) 16 12-28 Calcium (test code = 85117-4) 9.6 mg/dL See_Comment [Automated messa ge] The system which generated this result transmitted reference range: 8.7-10.3 mg/dL. The reference range was not used to interpret this result as normal/abnormal. Carbon Dioxide, Total (test code = 2027-9) 30 mmol/L See_Comment H [Automated message] The system which generated this result transmitted reference range: 20-29 mmol/L. The reference range was not used to interpret this result as normal/abnormal. Chloride (test code = 5-0) 99 mmol/L See_Comment [Automated messa ge] The system which generated this result transmitted reference range: 96-106 mmol/L. The reference range was not used to interpret this result as normal/abnormal. Creatinine (test code = 2160-0) 0.75 mg/dL See_Comment [Automated messa ge] The system which generated this result transmitted reference range: 0.57-1.00 mg/dL. The reference range was not used to interpret this result as normal/abnormal. Globulin, Total (test code = 70319-9) 2.7 g/dL See_Comment [Automated messa ge] The system which generated this result transmitted reference range: 1.5-4.5 g/dL. The reference range was not used to interpret this result as normal/abnormal. Glucose (test code = 2345-7) 101 mg/dL See_Comment H [Automated [employer]] The system which generated this result transmitted reference range: 70-99 mg/dL. The reference range was not used to interpret this result as normal/abnormal. Potassium (test code = 2823-3) 4.4 mmol/L See_Comment [Automated [employer]] The system which generated this result transmitted reference range: 3.5-5.2 mmol/L. The reference range was not used to interpret this result as normal/abnormal. Protein, Total (test code = 2885-2) 6.6 g/dL See_Comment [Automated [employer]] The system which generated this result transmitted reference range: 6.0-8.5 g/dL. The reference range was not used to interpret this result as normal/abnormal. Sodium (test code = 2951-2) 140 mmol/L See_Comment [Automated [employer]] The system which generated this result transmitted reference range: 134-144 mmol/L. The reference range was not used to interpret this result as normal/abnormal. TSH+Free [id number] 00:00:00* Test Item Value Reference Range Interpretation Comme nts Free T4 by Dialysis/Mass Spe c (test code = 6892-4) 1.8 ng/dL H TSH-ICMA (test code = 3016-3) 3.2 uU/mL DEXA, BONE DENSITY AXIAL SKELEDEXA, BONE DENSITY AXIAL SKELE
[2024-04-23] MEDS ORDERED: KETOROLAC 30 MG/ML INJ ONE (23:07)
--- NOTE | 2024-04-24 00:07 | ER ---
Nurse's Notes [facility] Name: Joanie Infante Age: 78 yrs Sex: Female : 1945 Arrival Date: 04/23/2024 Time: 22:07 Bed 19 Private MD: Perry Lares Diagnosis: Pain in right knee Presentation: 04/23 23:14 Chief complaint: Patient states: right knee pain from a fall 1 month ago. Coronavirus cp4 screen: Client denies travel out of the [place] in the last 14 days. At this time, the client does not indicate any symptoms associated with coronavirus-19. Ebola Screen: Patient negative for fever greater than or equal to 101.5 degrees Fahrenheit, and additional compatible Ebola Virus Disease symptoms Patient denies exposure to infectious person. Patient denies travel to an Ebola-affected area in the 21 days before illness onset. Initial Sepsis Screen: Does the patient meet any 2 criteria? HR > 90 bpm. No. Patient's initial sepsis screen is negative. Does the patient have a suspected source of infection? No. Patient's initial sepsis screen is negative. Risk Assessment: Do you want to hurt yourself or someone else? Patient reports no desire to harm self or others. Onset of symptoms was March 2024. 23:14 Method Of Arrival: Wheelchair cp4 23:14 Acuity: BOLA 4 cp4 Triage Assessment: 23:15 General: Appears distressed, uncomfortable, Behavior is calm, cooperative, appropriate cp4 for age. Pain: Complains of pain in right knee Pain currently is 10 out of 10 on a pain scale. Musculoskeletal: Reports pain in right knee. Historical: - Allergies: 23:15 Aspirin; cp4 - PMHx: 23:15 Hypertensive disorder; Thyroid problem; cp4 - Immunization history:: Adult Immunizations up to date. - Infectious Disease History:: Denies. - Social history:: Smoking status: Patient denies any tobacco usage or history of. Screenin:19 [facility] ED Fall Risk Assessment (Adult) History of falling in the last 3 months, cp4 including since admission Yes- single mechanical fall (1 pt) Confusion or Disorientation No (0 pts) Intoxicated or Sedated No (0 pts) Impaired Gait Yes (1 pt) Mobility Assist Device Used Yes (1 pt) Altered Elimination No (0 pt) Score/Fall Risk Level 3 or more points = High Risk Oriented to surroundings, Maintained a safe environment, Assessed \T\ reinforced patient's understanding of fall precautions, Hourly rounding (assess needs \T\ fall precautionary measures) done, Used ambulatory aids as needed (educated on \T\ assisted with). Abuse screen: Denies threats or abuse. Nutritional screening: No deficits noted. Tuberculosis screening: No symptoms or risk factors identified. Assessment: 23:19 Reassessment: No changes from previously documented assessment. cp4 Vital Signs: 23:14 BP 187 / 93; Pulse 97; Resp 18; Temp 98; Pulse Ox 95% ; Pain /; cp4 04/24 00:14 BP 180 / 92; Pulse 65; Resp 18; Pulse Ox 96% ; cp4 04/23 23:14 Pain Scale: Adult cp4 ED Course: 04/23 22:08 Patient arrived in ED. rg4 22:09 Perry Lares DO is Private Physician. rg4 22:35 Sekou Cheema PA is PHCP. cp 22:35 Jarrell Lares MD is Attending Physician. cp 23:01 Day Cuellar is Primary Nurse. cp4 23:15 Triage completed. cp4 23:15 Arm band placed on right wrist. Patient placed in waiting room. cp4 23:19 Bed in low position. Call light in reach. Side rails up X2. Provided Education on: knee cp4 pain. 23:26 XRAY Knee RIGHT 3 view In Process Unspecified. EDMS 23:35 US Extremity Venous Unilateral Ltd In Process Unspecified. EDMS 04/24 00:06 Chepe Vargas MD is Referral Physician. cp 00:23 No provider procedures requiring assistance completed. Patient did not have IV access cp4 during this emergency room visit. Administered Medications: 04/23 23:14 Drug: Ketorolac IM 15 mg IM once Route: IM; Site: right ventrogluteal; cp4 04/24 00:17 Follow up: Response: No adverse reaction cp4 00:16 Not Given (Patient Refused): hydrocodone-acetaminophen5 mg-325 mg 1 tabs PO once cp4 Medication: 04/23 23:19 VIS not applicable for this client. cp4 Outcome: 04/24 00:07 Discharge ordered by . cp 00:23 Discharged to home via wheelchair, cp4 00:23 Condition: stable 00:23 Discharge instructions given to patient, Instructed on discharge instructions, follow up and referral plans. medication usage, Demonstrated understanding of instructions, follow-up care, medications, Prescriptions given X 2, 00:24 Patient left the ED. cp4 Signatures: Dispatcher [employer] EDMS Sekou Cheema PA PA cp Garcia, Dilma rg4 Day Cuellar cp4
--- NOTE | 2024-04-24 00:07 | EDPHYS ---
Physician Documentation [facility] Name: Joanie Infante Age: 78 yrs Sex: Female : 1945 Arrival Date: 04/23/2024 Time: 22:07 Bed 19 Private MD: Arnaud [facility] ED Physician Jarrell Lares HPI: 04/23 23:00 This 78 yrs old Female presents to ER via Wheelchair with complaints of Knee Pain. cp 23:00 The patient presents with pain. cp 23:00 The complaints affect the right knee. Context: resulted from an unknown cause, reports cp falling 1 month ago but pain worse over past couple days. Associated signs and symptoms: The patient has no apparent associated signs or symptoms. Historical: - Allergies: 23:15 Aspirin; cp4 - PMHx: 23:15 Hypertensive disorder; Thyroid problem; cp4 - Immunization history:: Adult Immunizations up to date. - Infectious Disease History:: Denies. - Social history:: Smoking status: Patient denies any tobacco usage or history of. ROS: 23:05 MS/extremity: Positive for pain, of the right knee, Negative for injury or acute cp deformity, decreased range of motion, 23:05 Constitutional: Negative for body aches, chills, fever, poor PO intake, cp 23:05 Cardiovascular: Negative for chest pain, palpitations, 23:05 Respiratory: Negative for cough, shortness of breath, wheezing, Exam: 23:10 Constitutional: The patient appears in no acute distress, alert, awake, cp non-diaphoretic, non-toxic, well developed, well nourished, overweight 23:10 Head/Face: Normocephalic, atraumatic. cp 23:10 Chest/axilla: Inspection: normal, 23:10 Cardiovascular: Rate: normal, Rhythm: regular, 23:10 Respiratory: the patient does not display signs of respiratory distress, Respirations: normal, no use of accessory muscles, no retractions, labored breathing, is not present, Breath sounds: are clear throughout, no decreased breath sounds, no stridor, no wheezing, 23:10 Back: pain, is absent, ROM is normal, 23:10 Musculoskeletal/extremity: Extremities: noted in the right knee: pain, mild swelling, no effusion noted, overlying skin warm and dry with no erythema noted, There is no evidence of decreased ROM, ROM: limited passive range of motion due to pain, in the right knee, Vital Signs: 23:14 BP 187 / 93; Pulse 97; Resp 18; Temp 98; Pulse Ox 95% ; Pain 10/10; cp4 04/24 00:14 BP 180 / 92; Pulse 65; Resp 18; Pulse Ox 96% ; cp4 04/23 23:14 Pain Scale: Adult cp4 MDM: 04/23 23:00 Patient medically screened. cp 23:35 ED course: received verbal report from tech that of negative US. cp 04/24 00:00 Differential diagnosis: closed fracture, contusion, tendonitis. cp 00:06 Data reviewed: vital signs, nurses notes, radiologic studies, plain films, and as a cp result, I will discharge patient. 00:06 I considered the following discharge prescriptions or medication management in the emergency department Medications were administered in the Emergency Department. See MAR. Independent interpretation of the following test(s) in the Emergency Department X-Ray: My interpretation is images of right knee negative for fracture. Care significantly affected by the following chronic conditions: Hypertension, Obesity. Counseling: I had a detailed discussion with the patient and/or guardian regarding the historical points, exam findings, and any diagnostic results supporting the discharge/admit diagnosis, radiology results, the need for outpatient follow up, a orthopedic surgeon, to return to the emergency department if symptoms worsen or persist or if there are any questions or concerns that arise at home. Response to treatment: the patient's symptoms have markedly improved after treatment, and as a result, I will discharge patient. 04/23 22:50 Order name: XRAY Knee RIGHT 3 view cp 04/23 22:50 Order name: US Extremity Venous Unilateral Ltd cp 04/24 00:04 Order name: Blood Pressure Recheck; Complete Time: 00:07 cp Administered Medications: 04/23 23:14 Drug: Ketorolac IM 15 mg IM once Route: IM; Site: right ventrogluteal; cp4 04/24 00:17 Follow up: Response: No adverse reaction cp4 00:16 Not Given (Patient Refused): hydrocodone-acetaminophen5 mg-325 mg 1 tabs PO once cp4 Disposition Summary: 04/24/24 00:07 Discharge Ordered Notes: Location: Home cp Problem: new cp Symptoms: have improved cp Condition: Stable cp Diagnosis - Pain in right knee cp Followup: cp - With: Chepe Vargas MD - When: 1 week - Reason: Recheck today's complaints Discharge Instructions: - Discharge Summary Sheet cp - Elastic Bandage and RICE Therapy cp - Joint Pain cp - Arthritis cp - How to Use a Knee Brace cp Forms: - Medication Reconciliation Form cp - Antibiotic Education cp - Prescription Opioid Use cp - Patient Portal Instructions cp - Leadership Thank You Letter cp Prescriptions: - Mobic 7.5 mg Oral Tablet - take 1 tablet ORAL route once daily take with food; 20 tablet; Refills: 0, cp Product Selection Permitted - Tramadol 50 mg Oral Tablet - take 1 tablet ORAL route every 8 hours as needed; 12 tablet; Refills: 0, cp Product Selection Permitted Signatures: Dispatcher [employer] EDMS Sekou Cheema PA PA cp Potter, Christina cp4
[2024-04-24 03:06] VITALS: BP 180/92; TEMP 98; O2SAT 96
--- NOTE | 2024-04-24 11:04 | RAD REPORT ---
EXAM DESCRIPTION: RAD - Knee Right 3 View - 04/23/2024 11:24 pm CLINICAL HISTORY: PAIN COMPARISON: None FINDINGS: Two x-ray views of the right knee were submitted. There is no acute fracture or dislocatio n. Small suprapatellar fluid collection. Osteophytic formation noted at the patellofemoral compartmen t.. There is no radiopaque foreign body material. IMPRESSION: No acute fracture or dislocation. Small suprapatellar fluid collection. Electronically signed by: Sadi Delgado MD 04/23/2024 11:46 PM CDT RP Due to temporary technical issues with the PACS/Fluency reporting system, reports are being signed by the in house radiologist without review as a courtesy to ensure prompt reporting. The interpreting r adiologist is fully responsible for the content of the report.
--- NOTE | 2024-04-24 11:46 | RAD REPORT ---
EXAM DESCRIPTION: US - Extremity Venous Uni Ltd - 04/23/2024 11:34 pm CLINICAL HISTORY: PAIN COMPARISON: None. TECHNIQUE: Grayscale, color Doppler, and spectral Doppler imaging of the right lower extremity venou s system. FINDINGS: Normal compressibility, phasicity, and flow identified in the right common femoral, femora l, popliteal, and visualized calf veins. Normal flow in the visualized greater saphenous vein. No ech ogenic thrombus identified. IMPRESSION: No evidence of deep venous thrombosis in the right lower extremity. Electronically signed by: Rosa Barbosa MD 04/23/2024 11:56 PM CDT RP Due to temporary technical issues with the PACS/Fluency reporting system, reports are being signed by the in house radiologist without review as a courtesy to ensure prompt reporting. The interpreting r adiologist is fully responsible for the content of the report.
== END 2024-04-24 00:24 | disposition home or self-care (01) ==
LOC: ER 22:07
DX: M25.561 Pain in right knee (principal)
CPT/HCPCS: 93971; 96372; 99284

== ENCOUNTER 2025-01-31 07:48 | Day surgery (SDC) | payer OTHER ==
[2025-01-29 11:30] LABS: Absolute Lymphocytes (CBC) 1.2 K/uL (0.7-4.9); Absolute Monocytes 0.4 K/uL (0.1-1.3); Absolute Neutrophil 2.9 K/uL (1.8-8.0); Basophils % 0.5 % (0-1.3); Hematocrit 37.8 % (36.0-45.0); Hemoglobin 13.1 g/dL (12.0-15.0); MCH 32.8 pg (27.0-35.0); MCHC 34.6 g/dL (32.0-36.0); MCV 95.1 fL (80-100); MPV 8.9 fL (7.6-11.3); Monocytes % 8.3 % (3.3-12.3); Neutrophils % 64.2 % (41.7-73.7); Platelets 218 thou/uL (152-406); RBC Red Blood Cell Count 3.98 M/uL (3.86-4.86); Red Cell Distribution Width 12.3 % (12.1-15.2)
[2025-01-29 11:47] LABS: Anion Gap 6.5 mEq/L (5.0-15.0); Potassium 3.5 mEq/L (3.5-5.1)
[2025-01-31] MEDS: Ringers Lactate 1,000 ML IV ONE (08:13)
[2025-01-31] MEDS ORDERED: propofoL 200 MG/20 ML VIAL IV ONE ×2 (08:39→09:18)
[2025-01-31 10:18] VITALS: TEMP 97.8; O2SAT 96
[2025-01-31 10:19] VITALS: BP 130/75
== END 2025-01-31 10:10 | disposition home or self-care (01) ==
LOC: OR 07:48
PROVIDERS: ATTEND Surgery
PROC: 0DBL8ZX Excision of Transverse Colon, Via Natural or Artificial Opening Endoscopic, Diagnostic (ICD-10-PCS; 2025-01-31)
PROC: 0DBM8ZX Excision of Descending Colon, Via Natural or Artificial Opening Endoscopic, Diagnostic (ICD-10-PCS; principal; 2025-01-31 09:00)
DX: Z12.11 Encounter for screening for malignant neoplasm of colon (principal); Z86.0100 Personal history of colon polyps, unspecified; Z98.890 Other specified postprocedural states; K57.30 Diverticulosis of large intestine without perforation or abscess without bleeding; K64.8 Other hemorrhoids; K63.89 Other specified diseases of intestine; D12.4 Benign neoplasm of descending colon; D12.3 Benign neoplasm of transverse colon
CPT/HCPCS: 93005; 85025; 80048; 36415; 88305; 45385; J2704 ×2; J7120; 88304